=== PATIENT | male | born 1945 | race American Indian/Alaskan Native ===

== ENCOUNTER 2017-10-06 04:49 | Inpatient (IN) | payer MEDICARE, OTHER ==
[2017-10-06] VITALS (10 sets, daily range): BP systolic 95–108; BP diastolic 44–62
[~2017-10-06] VITALS: Ht 170.2 cm; Wt 94.1 kg
[~2017-10-06 04:49] MED LIST: ALLO300T8 PO; ATOR10TA87 PO; BUDE10.2 INH; BUPR200T2 PO; CARB1DRO16 EACHEYE; CYCL-1 PO; DOCU100C40 PO; FINA5TAB11 PO; FLO0.4C PO; FURO-149 PO; IPRA3AMP9 IH; IPRA4AER IH; METH-233 PO; METO25TA6 PO; OMEP-84 PO; POTA25TA13 PO; PROC5TAB PO; SYN0.025T PO; WARF-65 PO; ZAR5T PO
[2017-10-06] MEDS ORDERED: aspirin 81mg tab.chew PO ONE (05:10)
[2017-10-06 05:25] LABS: BASOPHILS # (AUTO) 0.1 X10'3 (0-0.2); BASOPHILS % (AUTO) 0.5 % (0-1); EOSINOPHILS # (AUTO) 0.9 X10'3 (0-0.9); HEMATOCRIT 33.9 % (42.0-52.0); HEMOGLOBIN 11.3 g/dl (14.0-17.9); LYMPHOCYTES # (AUTO) 1.2 X10'3 (1.1-4.8); LYMPHOCYTES % (AUTO) 9.5 % (21-51); MEAN CORPUSCULAR HEMOGLOBIN 29.8 PG (27.0-31.0); MEAN CORPUSCULAR HGB CONC 33.4 % (33.0-36.5); MEAN CORPUSCULAR VOLUME 89.3 FL (78-98); MEAN PLATELET VOLUME 7.4 FL (7.4-10.4); MONOCYTES # (AUTO) 0.7 X10'3 (0-0.9); MONOCYTES % (AUTO) 5.7 % (2-12); NEUTROPHILS # (AUTO) 9.6 X10'3 (1.8-7.7); NEUTROPHILS % (AUTO) 77.3 % (42-75); PLATELET COUNT 174 X10'3 (140-440); RED CELL DISTRIBUTION WIDTH 17.7 % (11.5-14.5); WHITE BLOOD COUNT 12.4 X10'3 (4.5-11.0)
[2017-10-06 05:45] LABS: ALANINE AMINOTRANSFERASE 47 U/L (12-78); ALBUMIN 3.4 G/DL (3.4-5.0); ALBUMIN/GLOBULIN RATIO 0.7 (1.1-1.5); ALKALINE PHOSPHATASE 119 IU/L (46-116); ANION GAP 15 (8-16); ASPARTATE AMINO TRANSFERASE 31 U/L (10-37); BLOOD UREA NITROGEN 30 MG/DL (7-18); BUN/CREATININE RATIO 21.6 (5.4-32.0); CALCIUM 9.6 MG/DL (8.5-10.1); CHLORIDE 100 MMOL/L (99-107); CREATININE 1.39 MG/DL (0.60-1.10); GLUCOSE 109 MG/DL (70-104); POTASSIUM 3.8 MMOL/L (3.5-5.1); SODIUM 139 MMOL/L (135-145); TOTAL PROTEIN 8.2 G/DL (6.4-8.2); eGFR 50 ML/MIN
[2017-10-06 06:11] LABS: INR 1.1 INR; PARTIAL THROMBOPLASTIN TIME 30 SECONDS (22-32); PROTHROMBIN TIME 11.5 SECONDS (9.0-12.0)
[2017-10-06] MEDS ORDERED: FURO40TA4 PO (07:10)
[2017-10-06] MEDS ORDERED: APIX5TAB3 PO (07:13)
[2017-10-06] MEDS ORDERED: MORP10CA11 PO (07:17)
[2017-10-06] MEDS ORDERED: CEFU500T66 PO (07:18)
[2017-10-06] MEDS ORDERED: SENN8.6T61 PO (07:19)
[2017-10-06] MEDS ORDERED: METF500T PO (07:20)
[2017-10-06] MEDS ORDERED: KRIL500C PO (07:21)
[2017-10-06] MEDS ORDERED: METO-384 PO (07:23)
[2017-10-06] MEDS ORDERED: MYCOL30CR TP (07:25)
[2017-10-06] MEDS ORDERED: DICL100G15 TOP (07:26)
[2017-10-06] MEDS ORDERED: aminophylline 250mg/10ml inj. IV PRN (07:30)
[2017-10-06] MEDS ORDERED: magnesium Cl slow-release 64mg tablet PO PRN (07:30)
[2017-10-06] MEDS ORDERED: acetaminophen 325mg tablet PO PRN (07:30)
[2017-10-06] MEDS ORDERED: metoprolol tartrate 1mg/ml inj IV PRN (07:30)
[2017-10-06] MEDS ORDERED: nitroGLYCERIN 0.4mg SUBLingual tab SL PRN ×2 (07:30)
[2017-10-06] MEDS ORDERED: magnesium 4gm in 100ml NS 100 ML IV PRN (07:30)
[2017-10-06] MEDS ORDERED: potassium Cl 40MEQ/NS 500ml 500 ML IV PRN ×2 (07:30)
[2017-10-06] MEDS ORDERED: magnesium 2GM in 50ml NS 50 ML IV PRN (07:30)
[2017-10-06] MEDS ORDERED: regadenoson 0.4mg/5ml syringe IV ONE ×2 (07:30→13:48)
[2017-10-06] MEDS ORDERED: magnesium hydroxide 30ml (MOM) UD suspension PO PRN (07:30)
[2017-10-06] MEDS ORDERED: potassium Cl 20 mEq SR tablet PO PRN ×2 (07:30)
[2017-10-06] MEDS ORDERED: mag hydrox/Alum hydrox/simeth 30ml oral suspension PO PRN (07:30)
[2017-10-06] MEDS: allopurinol 300 MG tablet PO SCH (08:00)
[2017-10-06] MEDS ORDERED: MORPHINE PO SCH (08:00)
[2017-10-06] MEDS: K and/or MAG REPLACEMENT MC SCH (08:00)
[2017-10-06] MEDS: aspirin 325mg tablet PO SCH (08:30)
[2017-10-06] MEDS ORDERED: cyclobenzaprine 10mg tablet PO PRN (08:40)
[2017-10-06] MEDS ORDERED: MORP-64 PO (09:21)
[2017-10-06] MEDS: furosemide 40mg/4ml inj IV SCH ×2 (09:47→20:08)
[2017-10-06] MEDS: levoTHYROXINE 100mcg tablet PO SCH (09:48)
[2017-10-06] MEDS: morphine ER 15mg tablet PO SCH ×2 (09:48→20:08)
[2017-10-06] MEDS: tamsulosin 0.4mg capsule PO SCH (09:48)
[2017-10-06] MEDS: docusate sod 100mg capsule PO SCH ×2 (09:48→20:07)
[2017-10-06] MEDS: finasteride 5mg tablet PO SCH (09:48)
[2017-10-06] MEDS: buPROPion SR 100mg tab PO SCH (09:49)
[2017-10-06] MEDS: apixaban 5mg tablet PO SCH ×2 (09:49→20:09)
[2017-10-06 11:17] LABS: COLOR,URINE YELLOW (Yellow); GLUCOSE, URINE NEGATIVE (Neg); KETONES,URINE NEGATIVE (Neg); LEUKOCYTE ESTERASE ,URINE NEGATIVE (Neg); NITRITES, URINE NEGATIVE (Neg); OCCULT BLOOD,URINE NEGATIVE (Neg); PH,URINE 5.5 (4.8-8.0); PROTEIN,URINE TRACE mg/dl (Neg); UROBILINOGEN,URINE 0.2 E.U/dL (0.2-1.0)
[2017-10-06 11:19] LABS: CLARITY,URINE SLIGHTLY CLOUDY (Clear); UA COLLECTION TYPE STRAIGHT CATH
[2017-10-06 11:30] LABS: BACTERIA,URINE FEW /HPF (Neg); HYALINE CASTS 0-3 /LPF (NEGATIVE); RBC,URINE 0-2 /HPF (0-2); SQUAMOUS EPITHELIAL CELL,UR FEW /LPF (FEW); TRANSITIONAL EPI CELLS,URINE FEW /HPF; WBC CLUMPS,URINE FEW /HPF (NEGATIVE)
[2017-10-06] MEDS ORDERED: aminophylline inj. 0 ML IV ONE (13:48)
[2017-10-06] MEDS: atorvastatin 10mg tablet PO SCH (20:08)
[2017-10-06] MEDS: potassium bicarbonate/cit acid 25mEq tablet.effervescent PO SCH (20:08)
[2017-10-06] MEDS: ipratropium/albuterol 3ml nebule NEB PRN (21:07)
[2017-10-07 03:42] VITALS: BP 111/60
[2017-10-07] MEDS: ipratropium/albuterol 3ml nebule NEB PRN ×2 (04:19→08:34)
[2017-10-07 05:43] LABS: HEMATOCRIT 29.1 % (42.0-52.0); HEMOGLOBIN 9.6 g/dl (14.0-17.9); MEAN CORPUSCULAR HEMOGLOBIN 29.2 PG (27.0-31.0); MEAN CORPUSCULAR HGB CONC 33.2 % (33.0-36.5); MEAN PLATELET VOLUME 7.3 FL (7.4-10.4); PLATELET COUNT 139 X10'3 (140-440); RED CELL DISTRIBUTION WIDTH 17.7 % (11.5-14.5); WHITE BLOOD COUNT 7.6 X10'3 (4.5-11.0)
[2017-10-07 05:53] LABS: INR 1.1 INR; PROTHROMBIN TIME 11.7 SECONDS (9.0-12.0)
[2017-10-07 06:00] VITALS: BP 104/58
[2017-10-07 06:12] LABS: ALBUMIN 3.1 G/DL (3.4-5.0); ANION GAP 10 (8-16); BLOOD UREA NITROGEN 33 MG/DL (7-18); BUN/CREATININE RATIO 26.2 (5.4-32.0); CHLORIDE 103 MMOL/L (99-107); CHOL/HDL RATIO 2.2 (0.00-4.99); CHOLESTEROL 121 MG/DL (0-200); CREATININE 1.26 MG/DL (0.60-1.10); GLUCOSE 96 MG/DL (70-104); HDL CHOLESTEROL 55 MG/DL (35-60); LDL CHOLESTEROL 58 MG/DL (50-100); MAGNESIUM 1.9 MG/DL (1.5-2.4); PHOSPHORUS 3.9 MG/DL (2.3-4.5); POTASSIUM 3.8 MMOL/L (3.5-5.1); SODIUM 142 MMOL/L (135-145); TOTAL CARBON DIOXIDE 29.5 MMOL/L (24-32); TRIGLYCERIDES 66 MG/DL (20-135); eGFR 56 ML/MIN
[2017-10-07] MEDS: fluticasone/vilanterol 200mcg/25mcg inhaler IH SCH (08:00)
[2017-10-07] MEDS: K and/or MAG REPLACEMENT MC SCH (08:00)
[2017-10-07] MEDS ORDERED: metoprolol succinate 25mg (24-HOUR) SR. Tablet PO SCH (08:00)
[2017-10-07] MEDS: allopurinol 300 MG tablet PO SCH (08:06)
[2017-10-07] MEDS: apixaban 5mg tablet PO SCH (08:06)
[2017-10-07] MEDS: levoTHYROXINE 100mcg tablet PO SCH (08:06)
[2017-10-07] MEDS: furosemide 40mg/4ml inj IV SCH (08:07)
[2017-10-07] MEDS: aspirin 325mg tablet PO SCH (08:07)
[2017-10-07] MEDS: docusate sod 100mg capsule PO SCH ×2 (08:07→20:50)
[2017-10-07] MEDS: finasteride 5mg tablet PO SCH (08:07)
[2017-10-07] MEDS: buPROPion SR 100mg tab PO SCH (08:08)
[2017-10-07] MEDS: morphine ER 15mg tablet PO SCH ×2 (08:16→20:49)
[2017-10-07] MEDS: tamsulosin 0.4mg capsule PO SCH (08:16)
[2017-10-07 11:00] VITALS: BP 92/58
[2017-10-07 15:00] VITALS: BP 95/52
[2017-10-07] MEDS ORDERED: metoprolol tartrate 25mg tablet PO ONE (16:45)
[2017-10-07 19:00] VITALS: BP 104/63
[2017-10-07] MEDS ORDERED: sodium bicarbonate (8.4%) inj. 150 MEQ in sodium chloride 0.45% 1,000 ML IV SCH (20:05)
[2017-10-07] MEDS: potassium bicarbonate/cit acid 25mEq tablet.effervescent PO SCH (20:47)
[2017-10-07] MEDS: atorvastatin 10mg tablet PO SCH (20:49)
[2017-10-07] MEDS: acetylcysteine 200 MG/ml 4ml vial PO SCH (21:40)
[2017-10-07] MEDS: temazepam 15mg capsule PO PRN (21:42)
[2017-10-07 23:21] VITALS: BP 105/67
[2017-10-08] VITALS (14 sets, daily range): BP systolic 86–124; BP diastolic 42–74
[2017-10-08 05:29] LABS: INR 1.1 INR; PROTHROMBIN TIME 11.5 SECONDS (9.0-12.0)
[2017-10-08 05:30] LABS: HEMATOCRIT 30.1 % (42.0-52.0); HEMOGLOBIN 9.9 g/dl (14.0-17.9); MEAN CORPUSCULAR VOLUME 87.8 FL (78-98); MEAN PLATELET VOLUME 7.2 FL (7.4-10.4); PLATELET COUNT 143 X10'3 (140-440); RED BLOOD COUNT 3.43 X10'6 (4.70-6.10); RED CELL DISTRIBUTION WIDTH 17.8 % (11.5-14.5); WHITE BLOOD COUNT 8.4 X10'3 (4.5-11.0)
[2017-10-08 06:07] LABS: ALBUMIN 3.1 G/DL (3.4-5.0); ANION GAP 9 (8-16); BLOOD UREA NITROGEN 37 MG/DL (7-18); BUN/CREATININE RATIO 28.2 (5.4-32.0); CALCIUM 9.1 MG/DL (8.5-10.1); CHLORIDE 100 MMOL/L (99-107); CREATININE 1.31 MG/DL (0.60-1.10); GLUCOSE 101 MG/DL (70-104); MAGNESIUM 2.1 MG/DL (1.5-2.4); PHOSPHORUS 3.5 MG/DL (2.3-4.5); POTASSIUM 3.9 MMOL/L (3.5-5.1); SODIUM 141 MMOL/L (135-145); TOTAL CARBON DIOXIDE 31.9 MMOL/L (24-32); eGFR 54 ML/MIN
[2017-10-08] MEDS: tamsulosin 0.4mg capsule PO SCH (07:33)
[2017-10-08] MEDS: docusate sod 100mg capsule PO SCH ×2 (07:34→20:37)
[2017-10-08] MEDS: buPROPion SR 100mg tab PO SCH (07:35)
[2017-10-08] MEDS: morphine ER 15mg tablet PO SCH ×2 (07:35→20:37)
[2017-10-08] MEDS: levoTHYROXINE 100mcg tablet PO SCH (07:35)
[2017-10-08] MEDS: finasteride 5mg tablet PO SCH (07:35)
[2017-10-08] MEDS: metoprolol succinate 25mg (24-HOUR) SR. Tablet PO SCH (07:36)
[2017-10-08] MEDS: furosemide 40mg/4ml inj IV SCH (07:37)
[2017-10-08] MEDS: acetylcysteine 200 MG/ml 4ml vial PO SCH (07:37)
[2017-10-08] MEDS: aspirin 325mg tablet PO SCH (07:39)
[2017-10-08] MEDS: K and/or MAG REPLACEMENT MC SCH (08:00)
[2017-10-08] MEDS ORDERED: acetylcysteine 200 MG/ml 4ml vial PO SCH (08:00)
[2017-10-08] MEDS: fluticasone/vilanterol 200mcg/25mcg inhaler IH SCH (09:57)
[2017-10-08] MEDS: LIDOcaine/PRILOcaine 5gm cream TP SCH ×2 (10:23→12:06)
[2017-10-08] MEDS ORDERED: nitroGLYCERIN-Tridil 50MG/D5W 250 ML IV ONE (12:07)
[2017-10-08] MEDS ORDERED: heparin 1,000unit/ml 10ml vial 10 ML ONE (12:08)
[2017-10-08] MEDS ORDERED: iohexol 350MG/ML 100ml bottle IV ONE (12:08)
[2017-10-08] MEDS ORDERED: verapamil 2.5 mg/ml inj IV ONE (12:08)
[2017-10-08] MEDS ORDERED: iohexol 350 MG/ML 50ML vial IV ONE (12:08)
[2017-10-08] MEDS ORDERED: LIDOcaine 1%/PF (10mg/ml) 5ml vial ONE ×2 (12:08→13:03)
[2017-10-08] MEDS ORDERED: midazolam 2 mg/2 ml injection ONE (12:43)
[2017-10-08] MEDS ORDERED: fentaNYL/PF 50MCG/1 ML 2ML syringe ONE (12:47)
[2017-10-08 13:46] LABS: ISTAT HGB ART 9.5 g/dl (14.0-18.0); ISTAT Hct ART 28 %PCV (42-52); ISTAT O2 SATURATION ARTERIAL 98 % (95-98); ISTAT SOURCE ART
[2017-10-08 13:46] LABS: ISTAT Hct MIX 28 %PCV (42-52); ISTAT O2 SATURATION MIX VENOUS 53 % (60-80); ISTAT SOURCE MIX
[2017-10-08] MEDS: ipratropium/albuterol 3ml nebule NEB PRN (19:50)
[2017-10-08] MEDS: apixaban 5mg tablet PO SCH (20:36)
[2017-10-08] MEDS: atorvastatin 10mg tablet PO SCH (20:37)
[2017-10-08] MEDS: potassium bicarbonate/cit acid 25mEq tablet.effervescent PO SCH (20:37)
[2017-10-08] MEDS: temazepam 15mg capsule PO PRN (20:41)
[2017-10-08] MEDS ORDERED: furosemide 40mg/4ml inj IV ONE (23:10)
[2017-10-09] VITALS (16 sets, daily range): BP systolic 96–112; BP diastolic 47–84
[2017-10-09 06:01] LABS: HEMATOCRIT 31.1 % (42.0-52.0); HEMOGLOBIN 10.4 g/dl (14.0-17.9); MEAN CORPUSCULAR HEMOGLOBIN 29.5 PG (27.0-31.0); MEAN CORPUSCULAR HGB CONC 33.3 % (33.0-36.5); MEAN CORPUSCULAR VOLUME 88.4 FL (78-98); MEAN PLATELET VOLUME 7.3 FL (7.4-10.4); PLATELET COUNT 165 X10'3 (140-440); RED BLOOD COUNT 3.52 X10'6 (4.70-6.10); RED CELL DISTRIBUTION WIDTH 18.1 % (11.5-14.5); WHITE BLOOD COUNT 8.8 X10'3 (4.5-11.0)
[2017-10-09 06:16] LABS: INR 1.1 INR; PROTHROMBIN TIME 11.8 SECONDS (9.0-12.0)
[2017-10-09 06:23] LABS: ALBUMIN 3.2 G/DL (3.4-5.0); ANION GAP 9 (8-16); BLOOD UREA NITROGEN 40 MG/DL (7-18); CALCIUM 9.1 MG/DL (8.5-10.1); CHLORIDE 98 MMOL/L (99-107); CREATININE 1.48 MG/DL (0.60-1.10); GLUCOSE 131 MG/DL (70-104); MAGNESIUM 2.2 MG/DL (1.5-2.4); PHOSPHORUS 3.7 MG/DL (2.3-4.5); POTASSIUM 3.9 MMOL/L (3.5-5.1); SODIUM 141 MMOL/L (135-145); TOTAL CARBON DIOXIDE 34.2 MMOL/L (24-32); eGFR 47 ML/MIN
[2017-10-09] MEDS: K and/or MAG REPLACEMENT MC SCH (08:00)
[2017-10-09] MEDS: buPROPion SR 100mg tab PO SCH (08:27)
[2017-10-09] MEDS: aspirin 325mg tablet PO SCH (08:27)
[2017-10-09] MEDS: docusate sod 100mg capsule PO SCH ×2 (08:28→20:18)
[2017-10-09] MEDS: levoTHYROXINE 100mcg tablet PO SCH (08:28)
[2017-10-09] MEDS: metoprolol succinate 25mg (24-HOUR) SR. Tablet PO SCH (08:28)
[2017-10-09] MEDS: apixaban 5mg tablet PO SCH ×2 (08:28→20:17)
[2017-10-09] MEDS: tamsulosin 0.4mg capsule PO SCH (08:28)
[2017-10-09] MEDS: furosemide 40mg/4ml inj IV SCH (08:28)
[2017-10-09] MEDS: finasteride 5mg tablet PO SCH (08:28)
[2017-10-09] MEDS: morphine ER 15mg tablet PO SCH ×2 (08:28→20:17)
[2017-10-09] MEDS: fluticasone/vilanterol 200mcg/25mcg inhaler IH SCH (08:50)
[2017-10-09] MEDS: DOBUTamine-DoBUTrex 500mg/D5W 250 ML IV SCH (12:33)
[2017-10-09] MEDS: atorvastatin 10mg tablet PO SCH (20:17)
[2017-10-09] MEDS: potassium bicarbonate/cit acid 25mEq tablet.effervescent PO SCH (20:17)
[2017-10-10] VITALS (15 sets, daily range): BP systolic 86–131; BP diastolic 46–81
[2017-10-10] MEDS: ondansetron/PF 4mg/2ml inj IV PRN ×2 (03:46→13:49)
[2017-10-10 05:03] LABS: HEMATOCRIT 28.2 % (42.0-52.0); HEMOGLOBIN 9.4 g/dl (14.0-17.9); MEAN CORPUSCULAR HEMOGLOBIN 29.3 PG (27.0-31.0); MEAN CORPUSCULAR HGB CONC 33.2 % (33.0-36.5); MEAN CORPUSCULAR VOLUME 88.5 FL (78-98); MEAN PLATELET VOLUME 6.9 FL (7.4-10.4); PLATELET COUNT 132 X10'3 (140-440); RED BLOOD COUNT 3.19 X10'6 (4.70-6.10); RED CELL DISTRIBUTION WIDTH 17.6 % (11.5-14.5); WHITE BLOOD COUNT 6.6 X10'3 (4.5-11.0)
[2017-10-10 05:19] LABS: INR 1.1 INR; PROTHROMBIN TIME 11.8 SECONDS (9.0-12.0)
[2017-10-10 05:26] LABS: ALBUMIN 3.1 G/DL (3.4-5.0); ANION GAP 8 (8-16); BLOOD UREA NITROGEN 39 MG/DL (7-18); BUN/CREATININE RATIO 26.7 (5.4-32.0); CALCIUM 8.7 MG/DL (8.5-10.1); CHLORIDE 99 MMOL/L (99-107); CREATININE 1.46 MG/DL (0.60-1.10); GLUCOSE 112 MG/DL (70-104); MAGNESIUM 2.2 MG/DL (1.5-2.4); PHOSPHORUS 4.2 MG/DL (2.3-4.5); SODIUM 141 MMOL/L (135-145); TOTAL CARBON DIOXIDE 34.3 MMOL/L (24-32); eGFR 48 ML/MIN
[2017-10-10] MEDS: DOBUTamine-DoBUTrex 500mg/D5W 250 ML IV SCH ×2 (06:17→08:25)
[2017-10-10] MEDS: K and/or MAG REPLACEMENT MC SCH (08:00)
[2017-10-10] MEDS: tamsulosin 0.4mg capsule PO SCH (08:12)
[2017-10-10] MEDS: allopurinol 300 MG tablet PO SCH (08:12)
[2017-10-10] MEDS: metoprolol succinate 25mg (24-HOUR) SR. Tablet PO SCH (08:13)
[2017-10-10] MEDS: morphine ER 15mg tablet PO SCH ×2 (08:13→20:20)
[2017-10-10] MEDS: levoTHYROXINE 100mcg tablet PO SCH (08:13)
[2017-10-10] MEDS: docusate sod 100mg capsule PO SCH ×2 (08:13→20:20)
[2017-10-10] MEDS: furosemide 40mg/4ml inj IV SCH (08:13)
[2017-10-10] MEDS: apixaban 5mg tablet PO SCH ×2 (08:13→20:20)
[2017-10-10] MEDS: finasteride 5mg tablet PO SCH (08:13)
[2017-10-10] MEDS: aspirin 325mg tablet PO SCH (08:13)
[2017-10-10] MEDS: buPROPion SR 100mg tab PO SCH (08:13)
[2017-10-10] MEDS: fluticasone/vilanterol 200mcg/25mcg inhaler IH SCH (11:02)
[2017-10-10] MEDS: atorvastatin 10mg tablet PO SCH (20:20)
[2017-10-10] MEDS: potassium bicarbonate/cit acid 25mEq tablet.effervescent PO SCH (20:20)
[2017-10-10] MEDS ORDERED: furosemide 40mg/4ml inj IV ONE (21:20)
[2017-10-10] MEDS: Melatonin 3mg tablet PO PRN (21:31)
[2017-10-11] VITALS (22 sets, daily range): BP systolic 85–121; BP diastolic 44–63
[2017-10-11] MEDS: DOBUTamine-DoBUTrex 500mg/D5W 250 ML IV SCH ×2 (02:33→17:39)
[2017-10-11] MEDS: acetaminophen 325mg tablet PO PRN ×2 (04:30→17:33)
[2017-10-11 05:21] LABS: BASOPHILS % (AUTO) 0.2 % (0-1); EOSINOPHILS # (AUTO) 0.2 X10'3 (0-0.9); EOSINOPHILS % (AUTO) 4.6 % (0-6); HEMATOCRIT 26.7 % (42.0-52.0); HEMOGLOBIN 8.9 g/dl (14.0-17.9); LYMPHOCYTES # (AUTO) 0.4 X10'3 (1.1-4.8); LYMPHOCYTES % (AUTO) 8.5 % (21-51); MEAN CORPUSCULAR HEMOGLOBIN 29.6 PG (27.0-31.0); MEAN CORPUSCULAR HGB CONC 33.5 % (33.0-36.5); MEAN CORPUSCULAR VOLUME 88.4 FL (78-98); MEAN PLATELET VOLUME 7.4 FL (7.4-10.4); MONOCYTES # (AUTO) 0.4 X10'3 (0-0.9); MONOCYTES % (AUTO) 6.8 % (2-12); NEUTROPHILS # (AUTO) 4.2 X10'3 (1.8-7.7); NEUTROPHILS % (AUTO) 79.9 % (42-75); PLATELET COUNT 100 X10'3 (140-440); RED BLOOD COUNT 3.02 X10'6 (4.70-6.10); RED CELL DISTRIBUTION WIDTH 17.5 % (11.5-14.5); WHITE BLOOD COUNT 5.2 X10'3 (4.5-11.0)
[2017-10-11 05:29] LABS: INR 1.2 INR; PARTIAL THROMBOPLASTIN TIME 31 SECONDS (22-32); PROTHROMBIN TIME 12.2 SECONDS (9.0-12.0)
[2017-10-11 05:46] LABS: ANION GAP 6 (8-16); BLOOD UREA NITROGEN 39 MG/DL (7-18); BUN/CREATININE RATIO 23.6 (5.4-32.0); CALCIUM 8.5 MG/DL (8.5-10.1); CHLORIDE 97 MMOL/L (99-107); CREATININE 1.65 MG/DL (0.60-1.10); GLUCOSE 100 MG/DL (70-104); MAGNESIUM 2.1 MG/DL (1.5-2.4); PHOSPHORUS 3.9 MG/DL (2.3-4.5); POTASSIUM 3.7 MMOL/L (3.5-5.1); SODIUM 137 MMOL/L (135-145); eGFR 41 ML/MIN
[2017-10-11] MEDS: furosemide 40mg/4ml inj IV SCH (07:24)
[2017-10-11] MEDS: apixaban 5mg tablet PO SCH ×2 (07:25→19:47)
[2017-10-11] MEDS: tamsulosin 0.4mg capsule PO SCH (07:26)
[2017-10-11] MEDS: metoprolol succinate 25mg (24-HOUR) SR. Tablet PO SCH (07:26)
[2017-10-11] MEDS: levoTHYROXINE 100mcg tablet PO SCH (07:26)
[2017-10-11] MEDS: morphine ER 15mg tablet PO SCH ×2 (07:27→19:47)
[2017-10-11] MEDS: buPROPion SR 100mg tab PO SCH (07:27)
[2017-10-11] MEDS: finasteride 5mg tablet PO SCH (07:27)
[2017-10-11] MEDS: docusate sod 100mg capsule PO SCH ×2 (07:27→19:47)
[2017-10-11] MEDS: aspirin 325mg tablet PO SCH (07:33)
[2017-10-11] MEDS: fluticasone/vilanterol 200mcg/25mcg inhaler IH SCH (07:36)
[2017-10-11] MEDS: K and/or MAG REPLACEMENT MC SCH (08:00)
[2017-10-11] MEDS: Melatonin 3mg tablet PO PRN (19:49)
[2017-10-11] MEDS: ondansetron/PF 4mg/2ml inj IV PRN (19:59)
[2017-10-11] MEDS: atorvastatin 10mg tablet PO SCH (20:02)
[2017-10-11] MEDS: potassium bicarbonate/cit acid 25mEq tablet.effervescent PO SCH (20:02)
[2017-10-12] VITALS (15 sets, daily range): BP systolic 90–120; BP diastolic 51–67
[2017-10-12] MEDS: acetaminophen 325mg tablet PO PRN ×2 (00:31→19:09)
[2017-10-12 07:16] LABS: ALBUMIN 2.9 G/DL (3.4-5.0); ANION GAP 5 (8-16); BLOOD UREA NITROGEN 36 MG/DL (7-18); CALCIUM 8.5 MG/DL (8.5-10.1); CHLORIDE 98 MMOL/L (99-107); GLUCOSE 100 MG/DL (70-104); POTASSIUM 3.8 MMOL/L (3.5-5.1); SODIUM 138 MMOL/L (135-145); eGFR 46 ML/MIN
[2017-10-12] MEDS: fluticasone/vilanterol 200mcg/25mcg inhaler IH SCH (08:00)
[2017-10-12] MEDS ORDERED: aspirin 81mg tablet.DR PO SCH (08:00)
[2017-10-12] MEDS: metoprolol succinate 25mg (24-HOUR) SR. Tablet PO SCH (08:00)
[2017-10-12] MEDS: K and/or MAG REPLACEMENT MC SCH (08:00)
[2017-10-12] MEDS: apixaban 5mg tablet PO SCH ×2 (08:09→19:09)
[2017-10-12] MEDS: furosemide 40mg/4ml inj IV SCH (08:09)
[2017-10-12] MEDS: levoTHYROXINE 100mcg tablet PO SCH (08:10)
[2017-10-12] MEDS: tamsulosin 0.4mg capsule PO SCH (08:10)
[2017-10-12] MEDS: buPROPion SR 100mg tab PO SCH (08:10)
[2017-10-12] MEDS: finasteride 5mg tablet PO SCH (08:10)
[2017-10-12] MEDS: allopurinol 300 MG tablet PO SCH (08:10)
[2017-10-12] MEDS: morphine ER 15mg tablet PO SCH ×2 (08:10→19:10)
[2017-10-12] MEDS: docusate sod 100mg capsule PO SCH ×2 (08:10→19:09)
[2017-10-12] MEDS: DOBUTamine-DoBUTrex 500mg/D5W 250 ML IV SCH (12:10)
[2017-10-12] MEDS: atorvastatin 10mg tablet PO SCH (21:00)
[2017-10-12] MEDS: potassium bicarbonate/cit acid 25mEq tablet.effervescent PO SCH (21:00)
[2017-10-12] MEDS ORDERED: ondansetron 4mg rapidly disintigrating tab PO ONE (21:45)
== END 2017-10-12 23:45 | disposition short-term general hospital (02) | DRG 286 ==
LOC: ER 04:49 → ED HOLD 07:28 → PCU 3S 15:12
PROVIDERS: ADMIT Family Medicine; ATTEND Family Medicine
PROC: 4A02XM4 Measurement of Cardiac Total Activity, External Approach (ICD-10-PCS; 2017-10-06)
PROC: 3E033HZ Introduction of Radioactive Substance into Peripheral Vein, Percutaneous Approach (ICD-10-PCS; 2017-10-06)
PROC: 4A023N8 Measurement of Cardiac Sampling and Pressure, Bilateral, Percutaneous Approach (ICD-10-PCS; principal; 2017-10-08)
PROC: B2111ZZ Fluoroscopy of Multiple Coronary Arteries using Low Osmolar Contrast (ICD-10-PCS; 2017-10-08)
PROC: B2151ZZ Fluoroscopy of Left Heart using Low Osmolar Contrast (ICD-10-PCS; 2017-10-08)
PROC: B3101ZZ Fluoroscopy of Thoracic Aorta using Low Osmolar Contrast (ICD-10-PCS; 2017-10-08)
DX: I13.0 Hypertensive heart and chronic kidney disease with heart failure and stage 1 through stage 4 chronic kidney disease, or unspecified chronic kidney disease (principal); I50.33 Acute on chronic diastolic (congestive) heart failure; N17.9 Acute kidney failure, unspecified; E11.22 Type 2 diabetes mellitus with diabetic chronic kidney disease; I48.0 Paroxysmal atrial fibrillation; J44.1 Chronic obstructive pulmonary disease with (acute) exacerbation; D64.9 Anemia, unspecified; E03.9 Hypothyroidism, unspecified; I25.10 Atherosclerotic heart disease of native coronary artery without angina pectoris; E78.00 Pure hypercholesterolemia, unspecified; G89.29 Other chronic pain; M10.9 Gout, unspecified; N18.9 Chronic kidney disease, unspecified; E66.9 Obesity, unspecified; I35.0 Nonrheumatic aortic (valve) stenosis; I34.0 Nonrheumatic mitral (valve) insufficiency; E78.5 Hyperlipidemia, unspecified; N40.0 Benign prostatic hyperplasia without lower urinary tract symptoms; F43.10 Post-traumatic stress disorder, unspecified; K21.9 Gastro-esophageal reflux disease without esophagitis; M19.90 Unspecified osteoarthritis, unspecified site; G47.33 Obstructive sleep apnea (adult) (pediatric); Z95.5 Presence of coronary angioplasty implant and graft; Z79.899 Other long term (current) drug therapy; Z79.01 Long term (current) use of anticoagulants; Z87.440 Personal history of urinary (tract) infections; Z68.32 Body mass index [BMI] 32.0-32.9, adult
CPT/HCPCS: 36415; 71045; 78452; 80048; 80053; 80061; 81001; 82803; 82948; 83735; 83880; 84100; 84443; 84484; 85014; 85025; 85027; 85610; 85730; 87070; 87088; 93005; 93017; 93306; 93460; 93567; 94640; 94760; 99152; 99153; 99285; A4620; A6257; A9500; C1769; J0280; J1250; J1644; J1940; J2001; J2250; J2405; J3010; J3490; Q9967

== ENCOUNTER 2018-07-10 11:03 | Emergency (ER) | payer MEDICARE, OTHER ==
[~2018-07-10] VITALS: Ht 162.6 cm; Wt 90.6 kg
[~2018-07-10 11:03] MED LIST changes: +APIX5TAB3 PO; +CEFU500T66 PO; -CYCL-1 PO; +DICL100G15 TOP; -FURO-149 PO; +FURO40TA4 PO; +KRIL500C PO; +METF500T PO; +METO-384 PO; -METO25TA6 PO; +MORP-64 PO; +MYCOL30CR TP; -PROC5TAB PO; +PROC5TAB10 PO; +SENN8.6T61 PO; -WARF-65 PO
[2018-07-10] MEDS ORDERED: bacitracin 15gm ointment TP ONE (11:25)
[2018-07-10] MEDS ORDERED: diph,pertuss (acell), tet (DTaP-PEDs)/PF 0.5ml syringe IMVAC ONE (11:35)
[2018-07-10] MEDS ORDERED: tetanus & diphtheria toxoid (Td) vaccine 0.5ml IMVAC ONE (11:40)
--- NOTE | 2018-07-10 11:44 | NUR ---
CALLED PHARMACY TO VERIFY TETANUS SHOT
--- NOTE | 2018-07-10 11:47 | NUR ---
SPOKE TO PHARMACIST DUE TO THE FACT THAT HE DCD MY ORDER FOR A TETANUS SHOT. I PREVIOUSLY CALLED PHARMACY TWICE: ONCE TO VERIFY WHICH SHOT TO ORDER: I WAS TOLD THE WRONG ONE
[2018-07-10] MEDS ORDERED: TETanus/Pertussis (Acell)/Diphther VAC/PF (Tdap-Adult) 0.5ml syringe IMVAC ONE (11:50)
[2018-07-10 11:57] VITALS: BP 129/68
== END 2018-07-10 12:01 | disposition home or self-care (01) ==
LOC: ER 11:04
DX: S81.832A Puncture wound without foreign body, left lower leg, initial encounter (principal); S81.812A Laceration without foreign body, left lower leg, initial encounter; I48.91 Unspecified atrial fibrillation; I25.10 Atherosclerotic heart disease of native coronary artery without angina pectoris; E78.00 Pure hypercholesterolemia, unspecified; J44.9 Chronic obstructive pulmonary disease, unspecified; E11.9 Type 2 diabetes mellitus without complications; E03.9 Hypothyroidism, unspecified; G89.29 Other chronic pain; M10.9 Gout, unspecified; I11.0 Hypertensive heart disease with heart failure; I50.9 Heart failure, unspecified; Z87.440 Personal history of urinary (tract) infections; Z98.61 Coronary angioplasty status; Z79.899 Other long term (current) drug therapy; W54.1XXA Struck by dog, initial encounter; Y93.89 Activity, other specified; Y92.89 Other specified places as the place of occurrence of the external cause; Y99.8 Other external cause status
CPT/HCPCS: 90471; 90715; 99283

== ENCOUNTER 2018-11-05 08:24 | Emergency (ER) | payer MEDICARE, OTHER ==
[~2018-11-05] VITALS: Ht 170.2 cm; Wt 95.0 kg
[2018-11-05 09:17] LABS: BASOPHILS % (AUTO) 0.5 % (0-1); EOSINOPHILS # (AUTO) 0.3 X10'3 (0-0.9); EOSINOPHILS % (AUTO) 4.4 % (0-6); HEMATOCRIT 35.8 % (42.0-52.0); HEMOGLOBIN 12.2 g/dl (14.0-17.9); LYMPHOCYTES # (AUTO) 0.6 X10'3 (1.1-4.8); LYMPHOCYTES % (AUTO) 9.5 % (21-51); MEAN CORPUSCULAR HEMOGLOBIN 31.2 PG (27.0-31.0); MEAN PLATELET VOLUME 7.4 FL (7.4-10.4); MONOCYTES # (AUTO) 0.5 X10'3 (0-0.9); MONOCYTES % (AUTO) 7.7 % (2-12); NEUTROPHILS # (AUTO) 5.1 X10'3 (1.8-7.7); NEUTROPHILS % (AUTO) 77.9 % (42-75); PLATELET COUNT 87 X10'3 (140-440); RED BLOOD COUNT 3.89 X10'6 (4.70-6.10); RED CELL DISTRIBUTION WIDTH 15.5 % (11.5-14.5); WHITE BLOOD COUNT 6.5 X10'3 (4.5-11.0)
[2018-11-05 09:29] LABS: ALANINE AMINOTRANSFERASE 31 U/L (12-78); ALBUMIN 3.6 G/DL (3.4-5.0); ALBUMIN/GLOBULIN RATIO 0.8 (1.1-1.5); ALKALINE PHOSPHATASE 88 IU/L (46-116); ANION GAP 9 (8-16); ASPARTATE AMINO TRANSFERASE 26 U/L (10-37); BLOOD UREA NITROGEN 19 MG/DL (7-18); BUN/CREATININE RATIO 16.2 (5.4-32.0); CALCIUM 9.4 MG/DL (8.5-10.1); CHLORIDE 107 MMOL/L (99-107); CREATININE 1.17 MG/DL (0.60-1.10); GLUCOSE 100 MG/DL (70-104); POTASSIUM 4.5 MMOL/L (3.5-5.1); SODIUM 139 MMOL/L (135-145); TOTAL CARBON DIOXIDE 23.2 MMOL/L (24-32); eGFR 61 ML/MIN
[2018-11-05] MEDS ORDERED: ipratropium/albuterol 3ml nebule NEB ONE (09:35)
[2018-11-05] MEDS ORDERED: potassium Cl 20 mEq SR tablet PO STA (09:46)
[2018-11-05] MEDS ORDERED: furosemide 10 MG/1 ML 10ml inj IV ONE (09:50)
[2018-11-05 09:56] VITALS: BP 124/73
== END 2018-11-05 10:41 | disposition home or self-care (01) ==
LOC: ER 08:25
DX: I11.0 Hypertensive heart disease with heart failure (principal); I50.9 Heart failure, unspecified; I48.91 Unspecified atrial fibrillation; I25.10 Atherosclerotic heart disease of native coronary artery without angina pectoris; E78.00 Pure hypercholesterolemia, unspecified; J44.9 Chronic obstructive pulmonary disease, unspecified; E11.9 Type 2 diabetes mellitus without complications; E03.9 Hypothyroidism, unspecified; G89.29 Other chronic pain; Z95.1 Presence of aortocoronary bypass graft
CPT/HCPCS: 36415; 71046; 80053; 83605; 83880; 84484; 85025; 87040; 93005; 94640; 96374; 99284; J1940

== ENCOUNTER 2019-08-01 18:46 | Emergency (ER) | payer MEDICARE, SELFPAY ==
[~2019-08-01] VITALS: Ht 165.1 cm; Wt 90.0 kg
[~2019-08-01 18:46] MED LIST changes: -MORP-64 PO; +MORP-92 PO
[2019-08-01 20:30] LABS: CLARITY,URINE CLEAR (Clear); COLOR,URINE YELLOW (Yellow); GLUCOSE, URINE NEGATIVE (Neg); KETONES,URINE NEGATIVE (Neg); LEUKOCYTE ESTERASE ,URINE NEGATIVE (Neg); NITRITES, URINE NEGATIVE (Neg); OCCULT BLOOD,URINE TRACE-INTACT (Neg); PROTEIN,URINE NEGATIVE (Neg)
[2019-08-01 20:36] LABS: UA COLLECTION TYPE STRAIGHT CATH
[2019-08-01 20:38] LABS: BACTERIA,URINE NONE SEEN /HPF (Neg); RBC,URINE 0-2 /HPF (0-2); SQUAMOUS EPITHELIAL CELL,UR FEW /LPF (FEW); WBC,URINE 0-4 /HPF (0-4)
[2019-08-01 20:39] LABS: HYALINE CASTS 0-3 /LPF (NEGATIVE)
[2019-08-01 21:03] LABS: BASOPHILS % (AUTO) 0.5 % (0-1); EOSINOPHILS # (AUTO) 0.5 X10'3 (0-0.9); EOSINOPHILS % (AUTO) 5.5 % (0-6); HEMATOCRIT 42.3 % (42.0-52.0); HEMOGLOBIN 14.6 g/dl (14.0-17.9); LYMPHOCYTES # (AUTO) 1.7 X10'3 (1.1-4.8); LYMPHOCYTES % (AUTO) 20.4 % (21-51); MEAN CORPUSCULAR HEMOGLOBIN 31.8 PG (27.0-31.0); MEAN CORPUSCULAR HGB CONC 34.5 g/dL (33.0-36.5); MEAN CORPUSCULAR VOLUME 92.1 FL (78-98); MEAN PLATELET VOLUME 7.3 FL (7.4-10.4); MONOCYTES # (AUTO) 0.8 X10'3 (0-0.9); MONOCYTES % (AUTO) 9.3 % (2-12); NEUTROPHILS # (AUTO) 5.3 X10'3 (1.8-7.7); NEUTROPHILS % (AUTO) 64.3 % (42-75); PLATELET COUNT 96 X10'3 (140-440); RED BLOOD COUNT 4.59 X10'6 (4.70-6.10); RED CELL DISTRIBUTION WIDTH 15.2 % (11.5-14.5); WHITE BLOOD COUNT 8.3 X10'3 (4.5-11.0)
[2019-08-01 21:19] LABS: ALANINE AMINOTRANSFERASE 27 U/L (12-78); ALBUMIN 4.1 G/DL (3.4-5.0); ALKALINE PHOSPHATASE 76 IU/L (46-116); ANION GAP 4 (8-16); ASPARTATE AMINO TRANSFERASE 20 U/L (10-37); BILIRUBIN,TOTAL 0.9 MG/DL (0.1-1.0); BLOOD UREA NITROGEN 26 MG/DL (7-18); BUN/CREATININE RATIO 21.8 (5.4-32.0); CALCIUM 9.6 MG/DL (8.5-10.1); CHLORIDE 106 MMOL/L (99-107); CREATININE 1.19 MG/DL (0.60-1.10); GLUCOSE 96 MG/DL (70-104); POTASSIUM 4.1 MMOL/L (3.5-5.1); SODIUM 143 MMOL/L (135-145); TOTAL CARBON DIOXIDE 33.2 MMOL/L (24-32); TOTAL PROTEIN 8.2 G/DL (6.4-8.2); eGFR 60 ML/MIN
[2019-08-01 21:40] LABS: PLATELET ESTIMATE DECREASED
[2019-08-01 22:29] VITALS: BP 99/144
== END 2019-08-01 22:31 | disposition home or self-care (01) ==
LOC: ER 18:47
DX: M79.18 Myalgia, other site (principal); R06.00 Dyspnea, unspecified; R22.0 Localized swelling, mass and lump, head; R61 Generalized hyperhidrosis; I48.91 Unspecified atrial fibrillation; I25.10 Atherosclerotic heart disease of native coronary artery without angina pectoris; I11.0 Hypertensive heart disease with heart failure; I50.9 Heart failure, unspecified; E78.00 Pure hypercholesterolemia, unspecified; E11.9 Type 2 diabetes mellitus without complications; E03.9 Hypothyroidism, unspecified; G89.29 Other chronic pain; Z98.61 Coronary angioplasty status; Z98.890 Other specified postprocedural states; Z87.891 Personal history of nicotine dependence; Z79.84 Long term (current) use of oral hypoglycemic drugs; Z79.899 Other long term (current) drug therapy
CPT/HCPCS: 36415; 80053; 81001; 85025; 99283

== ENCOUNTER 2020-01-26 06:30 | Emergency (ER) | payer MEDICARE ==
[~2020-01-26] VITALS: Ht 165.1 cm; Wt 90.0 kg
[2020-01-26 07:41] LABS: BASOPHILS # (AUTO) 0.2 X10'3 (0-0.2); BASOPHILS % (AUTO) 1.8 % (0-1); EOSINOPHILS # (AUTO) 0.3 X10'3 (0-0.9); EOSINOPHILS % (AUTO) 3.8 % (0-6); HEMOGLOBIN 12.8 g/dl (14.0-17.9); MEAN CORPUSCULAR HEMOGLOBIN 31.8 PG (27.0-31.0); MEAN CORPUSCULAR HGB CONC 33.6 g/dL (33.0-36.5); MEAN CORPUSCULAR VOLUME 94.6 FL (78-98); MONOCYTES # (AUTO) 0.4 X10'3 (0-0.9); MONOCYTES % (AUTO) 5.2 % (2-12); NEUTROPHILS # (AUTO) 6.6 X10'3 (1.8-7.7); NEUTROPHILS % (AUTO) 77.2 % (42-75); PLATELET COUNT 105 X10'3 (140-440); RED BLOOD COUNT 4.01 X10'6 (4.70-6.10); RED CELL DISTRIBUTION WIDTH 15.5 % (11.5-14.5); WHITE BLOOD COUNT 8.5 X10'3 (4.5-11.0)
[2020-01-26] MEDS ORDERED: ondansetron/PF 4mg/2ml inj IV ONE (07:50)
[2020-01-26] MEDS ORDERED: furosemide 10 MG/1 ML 10ml inj IV ONE (07:50)
[2020-01-26 08:05] LABS: ALANINE AMINOTRANSFERASE 20 U/L (12-78); ALBUMIN 3.6 G/DL (3.4-5.0); ALBUMIN/GLOBULIN RATIO 0.7 (1.1-1.5); ALKALINE PHOSPHATASE 72 IU/L (46-116); ANION GAP 9 (8-16); ASPARTATE AMINO TRANSFERASE 26 U/L (10-37); BILIRUBIN,TOTAL 0.8 MG/DL (0.1-1.0); BLOOD UREA NITROGEN 39 MG/DL (7-18); BUN/CREATININE RATIO 21.7 (5.4-32.0); CHLORIDE 100 MMOL/L (99-107); GLUCOSE 103 MG/DL (70-104); POTASSIUM 3.2 MMOL/L (3.5-5.1); SODIUM 138 MMOL/L (135-145); TOTAL CARBON DIOXIDE 28.6 MMOL/L (24-32); TOTAL PROTEIN 8.6 G/DL (6.4-8.2); eGFR 37 ML/MIN
[2020-01-26] MEDS ORDERED: ipratropium/albuterol 3ml nebule NEB ONE (08:15)
--- NOTE | 2020-01-26 08:34 | NUR ---
RT at bedside.
[2020-01-26] MEDS ORDERED: PRED20TA PO (09:08)
[2020-01-26] MEDS ORDERED: predniSONE 20 mg tablet PO ONE (09:10)
[2020-01-26 09:17] VITALS: BP 135/87
== END 2020-01-26 09:17 | disposition home or self-care (01) ==
LOC: ER 06:31
DX: J44.1 Chronic obstructive pulmonary disease with (acute) exacerbation (principal); R11.0 Nausea; I48.91 Unspecified atrial fibrillation; I25.10 Atherosclerotic heart disease of native coronary artery without angina pectoris; I11.0 Hypertensive heart disease with heart failure; I50.9 Heart failure, unspecified; E78.00 Pure hypercholesterolemia, unspecified; E11.9 Type 2 diabetes mellitus without complications; E03.9 Hypothyroidism, unspecified; G89.29 Other chronic pain; M10.9 Gout, unspecified; Z87.440 Personal history of urinary (tract) infections; Z98.890 Other specified postprocedural states; Z79.2 Long term (current) use of antibiotics; Z79.899 Other long term (current) drug therapy
CPT/HCPCS: 36415; 71045; 80053; 82948; 83880; 84145; 84484; 85025; 93005; 94640; 96374; 96375; 99285; J1940; J2405; J7512; 94760

== ENCOUNTER 2021-07-09 13:06 | Emergency (ER) | payer MEDICARE ==
[~2021-07-09] VITALS: Ht 170.2 cm; Wt 127.3 kg
[2021-07-09 13:26] VITALS: BP 126/79
[2021-07-09 13:37] LABS: BASOPHILS # (AUTO) 0.1 X10'3 (0-0.2); BASOPHILS % (AUTO) 0.6 % (0-1); EOSINOPHILS % (AUTO) 0.4 % (0-6); HEMATOCRIT 41.1 % (42.0-52.0); HEMOGLOBIN 13.9 g/dl (14.0-17.9); LYMPHOCYTES # (AUTO) 0.8 X10'3 (1.1-4.8); LYMPHOCYTES % (AUTO) 8.7 % (21-51); MEAN CORPUSCULAR HEMOGLOBIN 32.7 PG (27.0-31.0); MEAN CORPUSCULAR HGB CONC 33.8 g/dL (33.0-36.5); MEAN CORPUSCULAR VOLUME 96.9 FL (78-98); MEAN PLATELET VOLUME 6.9 FL (7.4-10.4); MONOCYTES # (AUTO) 0.6 X10'3 (0-0.9); MONOCYTES % (AUTO) 6.8 % (2-12); NEUTROPHILS # (AUTO) 7.7 X10'3 (1.8-7.7); NEUTROPHILS % (AUTO) 83.5 % (42-75); PLATELET COUNT 114 X10'3 (140-440); RED BLOOD COUNT 4.24 X10'6 (4.70-6.10); RED CELL DISTRIBUTION WIDTH 16.3 % (11.5-14.5); WHITE BLOOD COUNT 9.2 X10'3 (4.5-11.0)
[2021-07-09 13:50] LABS: ALANINE AMINOTRANSFERASE 22 U/L (12-78); ALBUMIN 3.3 G/DL (3.4-5.0); ALBUMIN/GLOBULIN RATIO 0.6 (1.1-1.5); ALKALINE PHOSPHATASE 82 IU/L (46-116); ANION GAP 12 (8-16); ASPARTATE AMINO TRANSFERASE 28 U/L (10-37); BILIRUBIN,TOTAL 1.8 MG/DL (0.1-1.0); BLOOD UREA NITROGEN 46 MG/DL (7-18); BUN/CREATININE RATIO 30.5 (5.4-32.0); CHLORIDE 97 MMOL/L (99-107); CREATININE 1.51 MG/DL (0.60-1.10); GLUCOSE 117 MG/DL (70-104); SODIUM 138 MMOL/L (135-145); TOTAL CARBON DIOXIDE 29.5 MMOL/L (24-32); TOTAL PROTEIN 8.6 G/DL (6.4-8.2); eGFR 45 ML/MIN
[2021-07-09 14:03] LABS: POTASSIUM 2.8 MMOL/L (3.5-5.1)
[2021-07-09] MEDS ORDERED: potassium Cl 20 mEq SR tablet PO ONE (14:15)
[2021-07-09 14:27] LABS: CALCIUM 9.5 MG/DL (8.5-10.1)
[2021-07-09] MEDS: potassium CL 10mEq/100ml bag 100 ML IV SCH ×2 (14:40→16:41)
[2021-07-09] MEDS ORDERED: normal saline 1000ml 1,000 ML IV ONE (15:50)
[2021-07-09] MEDS ORDERED: AMOX-117 PO (15:52)
[2021-07-09] MEDS ORDERED: PRED20TA PO (15:52)
[2021-07-09] MEDS ORDERED: ALBU8HFA PO (15:52)
[2021-07-12] MEDS ORDERED: CEFD300C3 PO (11:33)
[2021-07-12] MEDS ORDERED: LACT1CAP26 PO (11:33)
== END 2021-07-09 17:17 | disposition home or self-care (01) ==
LOC: ER 13:07
DX: J18.9 Pneumonia, unspecified organism (principal); Z20.822 Contact with and (suspected) exposure to COVID-19; R50.9 Fever, unspecified; I48.91 Unspecified atrial fibrillation; I25.10 Atherosclerotic heart disease of native coronary artery without angina pectoris; I11.0 Hypertensive heart disease with heart failure; I50.9 Heart failure, unspecified; J43.9 Emphysema, unspecified; E11.9 Type 2 diabetes mellitus without complications; E03.9 Hypothyroidism, unspecified; G89.29 Other chronic pain; M10.9 Gout, unspecified; Z87.440 Personal history of urinary (tract) infections; Z98.890 Other specified postprocedural states; Z79.899 Other long term (current) drug therapy
CPT/HCPCS: 71045; 80053; 85025; 87502; 87503; 87635; 96360; 96361; 99284; C9803; J3480; J7030

== ENCOUNTER 2021-10-11 04:32 | Inpatient (IN) | payer OTHER, MEDICARE ==
[~2021-10-11] VITALS: Ht 167.6 cm; Wt 104.1 kg
[2021-10-11] VITALS (10 sets, daily range): BP systolic 84–129; BP diastolic 48–72
[~2021-10-11 04:32] MED LIST changes: -APIX5TAB3 PO; -BUPR200T2 PO; -CARB1DRO16 EACHEYE; -CEFU500T66 PO; -DICL100G15 TOP; -FLO0.4C PO; -KRIL500C PO; +LACT1CAP26 PO; -MYCOL30CR TP; -OMEP-84 PO
[2021-10-11] MEDS ORDERED: normal saline 1000ml 1,000 ML IV ONE ×2 (04:50→08:15)
[2021-10-11] MEDS ORDERED: diltiazem 5mg/ml 5ml inj. IV ONE ×2 (04:50→08:45)
[2021-10-11] MEDS ORDERED: cefepime 1GM/NS ADD-VANTAGE 100 ML IV ONE (05:00)
[2021-10-11] MEDS ORDERED: acetaminophen 650mg rectal suppository RC ONE ×2 (05:00→10:10)
[2021-10-11 05:05] LABS: BASOPHILS % (AUTO) 0.3 % (0-1); EOSINOPHILS % (AUTO) 0 % (0-6); HEMOGLOBIN 13.4 g/dl (14.0-17.9); LYMPHOCYTES # (AUTO) 0.4 X10'3 (1.1-4.8)
[2021-10-11 05:06] LABS: CLARITY,URINE CLOUDY (Clear); COLOR,URINE YELLOW (Yellow); GLUCOSE, URINE NEGATIVE (Neg); HEMATOCRIT 40.4 % (42.0-52.0); KETONES,URINE NEGATIVE (Neg); LEUKOCYTE ESTERASE ,URINE SMALL (Neg); LYMPHOCYTES % (AUTO) 3.1 % (21-51); MEAN CORPUSCULAR HEMOGLOBIN 31.9 PG (27.0-31.0); MEAN CORPUSCULAR HGB CONC 33.2 g/dL (33.0-36.5); MEAN PLATELET VOLUME 7.4 FL (7.4-10.4); MONOCYTES # (AUTO) 0.8 X10'3 (0-0.9); MONOCYTES % (AUTO) 5.8 % (2-12); NEUTROPHILS # (AUTO) 12.9 X10'3 (1.8-7.7); NEUTROPHILS % (AUTO) 90.8 % (42-75); NITRITES, URINE NEGATIVE (Neg); OCCULT BLOOD,URINE LARGE (Neg); PH,URINE 6.5 (4.8-8.0); PLATELET COUNT 85 X10'3 (140-440); PROTEIN,URINE 30 mg/dl (Neg); RED BLOOD COUNT 4.21 X10'6 (4.70-6.10); RED CELL DISTRIBUTION WIDTH 15.6 % (11.5-14.5); WHITE BLOOD COUNT 14.2 X10'3 (4.5-11.0)
[2021-10-11 05:15] LABS: APTT 30 SECONDS (22-32)
[2021-10-11 05:17] LABS: ALANINE AMINOTRANSFERASE 30 U/L (12-78); ALBUMIN 3.5 G/DL (3.4-5.0); ALKALINE PHOSPHATASE 87 IU/L (46-116); ANION GAP 9 (8-16); ASPARTATE AMINO TRANSFERASE 33 U/L (10-37); BILIRUBIN,TOTAL 4.3 MG/DL (0.1-1.0); BLOOD UREA NITROGEN 54 MG/DL (7-18); BUN/CREATININE RATIO 24.3 (5.4-32.0); CALCIUM 9.3 MG/DL (8.5-10.1); CHLORIDE 96 MMOL/L (99-107); CREATININE 2.22 MG/DL (0.60-1.10); GLUCOSE 177 MG/DL (70-104); POTASSIUM 3.1 MMOL/L (3.5-5.1); SODIUM 136 MMOL/L (135-145); TOTAL CARBON DIOXIDE 30.6 MMOL/L (24-32); eGFR 29 ML/MIN
[2021-10-11 05:19] LABS: ALBUMIN/GLOBULIN RATIO 0.7 (1.1-1.5); TOTAL PROTEIN 8.6 G/DL (6.4-8.2)
[2021-10-11 05:21] LABS: ETHANOL < 0.010 GM/DL (0.0-0.010)
[2021-10-11 05:22] LABS: UA COLLECTION TYPE CLN CATCH MIDSTREAM
[2021-10-11 05:23] LABS: URINE AMPHETAMINE SCREEN NEGATIVE (Neg); URINE BARBITUATE SCREEN NEGATIVE (Neg); URINE BENZODIAZEPINES SCREEN NEGATIVE (Neg); URINE CANNABINOID SCREEN POSITIVE (Neg); URINE COCAINE SCREEN NEGATIVE (Neg); URINE METHADONE SCREEN NEGATIVE (Neg); URINE OPIATE SCREEN POSITIVE (Neg); URINE PHENCYCLIDINE SCREEN NEGATIVE (Neg)
[2021-10-11 05:24] LABS: BACTERIA,URINE 4+ /HPF (Neg); WBC,URINE 50-100 /HPF (0-4)
[2021-10-11 05:25] LABS: MUCUS STRANDS NONE SEEN /LPF (Neg); SQUAMOUS EPITHELIAL CELL,UR NONE SEEN /LPF (FEW); WBC CLUMPS,URINE MODERATE /HPF (NEGATIVE)
[2021-10-11] MEDS: LORazepam 2 mg/ml vial ONE ×2 (05:40→06:02)
[2021-10-11] MEDS ORDERED: LORazepam 2 mg/ml vial IV ONE ×3 (05:45→17:05)
--- NOTE | 2021-10-11 06:41 | NUR ---
MD AIVTIA MADE AWARE OF PT TACHYCARDIA 120S-140. RECEIVED VERBAL ORDER FOR 500ML NORMAL SALINE BOLUS. ORDER PLACED RECEIVED
[2021-10-11] MEDS ORDERED: normal saline 500ml IV soln 500 ML IV ONE (06:45)
[2021-10-11] MEDS ORDERED: vancomycin/NS 1 GM ADD-VANTAGE 250 ML IV ONE (08:00)
--- NOTE | 2021-10-11 08:45 | NUR ---
pt attempting to get out of bed, not redirectable and continues to be altered. cindy trevizo made aware and verbal order for nonbehavior restraints received. also made aware that pt heart rate went up to 160s and is currently still 135 bpm.
[2021-10-11 09:51] LABS: ABG BASE EXCESS 4.9 mmol/L (-2.0-2.0); ABG HCO3 28.8 mmol/L (22.0-26.0); ABG OXYGEN SATURATION 97.4 % (94-97); ABG PCO2 (T) 39.8 mmHg (35.0-48.0); ABG PO2 (T) 100.5 mmHg (75.0-100.0); ALLEN'S TEST POS; FCOHb 1.1 % (0.0-3.9); FLOW 6 L/min; FO2Hb 96.3 % (94-97)
[2021-10-11] MEDS ORDERED: acetaminophen 1,000mg/100ml IV 100 ML IV ONE (10:49)
--- NOTE | 2021-10-11 10:52 | NUR ---
JOANN UP MADE AWARE OF PT TEMP 104.0 F VIA TEMP RAHUL. IV TYLENOL ORDERED
[2021-10-11] MEDS ORDERED: ondansetron/PF 4mg/2ml inj IV PRN (10:55)
[2021-10-11] MEDS ORDERED: bisacodyl 10mg suppository rectal RC PRN (10:55)
[2021-10-11] MEDS ORDERED: magnesium 2GM in 50ml NS 50 ML IV PRN (10:55)
[2021-10-11] MEDS ORDERED: acetaminophen 650mg rectal suppository RC PRN (10:55)
[2021-10-11] MEDS ORDERED: magnesium hydroxide 30ml (MOM) UD suspension PO PRN (10:55)
[2021-10-11] MEDS ORDERED: amiodarone 150mg/dext, iso-os 100 ML IV ONE ×2 (10:55→11:10)
[2021-10-11] MEDS ORDERED: albuterol 2.5 MG/3 ML nebule NEB PRN (10:55)
[2021-10-11] MEDS ORDERED: magnesium 4gm in 100ml NS 100 ML IV PRN (10:55)
[2021-10-11] MEDS ORDERED: potassium Cl 20 mEq SR tablet PO PRN (10:55)
[2021-10-11] MEDS: amiodarone/D5 360MG/200ML BAG 200 ML IV SCH ×3 (11:27→23:18)
[2021-10-11] MEDS: K and/or MAG REPLACEMENT MC SCH (12:30)
[2021-10-11] MEDS: potassium CL 10mEq/100ml bag 100 ML IV PRN (12:31)
--- NOTE | 2021-10-11 13:10 | NUR ---
informed geophysical prospector barney of pt continued fever of 102.2 (bladder) and confirmed with rectal temperature. per barney, continue with ice packs on patient and then full cooling measures will be implemented/artic sun placed on icu when pt arrives.
[2021-10-11] MEDS ORDERED: albumin (Human) 5% 250ml 250 ML IV ONE (13:40)
--- NOTE | 2021-10-11 13:48 | NUR ---
MF CARLOS AT BEDSIDE. BP 80S/50S ALBUMIN ORDERED AND ADMINISTERED.
[2021-10-11] MEDS ORDERED: dexmedetomidin/NS 400mcg/100ml 100 ML IV SCH ×2 (17:05→17:20)
--- NOTE | 2021-10-11 18:16 | NUR ---
Problems reprioritized. Patient report given, questions answered & plan of care reviewed with ismael ACUNA.
[2021-10-11] MEDS: heparin, porcine 5000 units/ml vial SQ SCH (20:00)
[2021-10-11] MEDS: famotidine/PF 10 mg/ml inj IV SCH (20:31)
[2021-10-11] MEDS: cefepime 1GM/NS ADD-VANTAGE 100 ML IV SCH (20:31)
[2021-10-12] VITALS (23 sets, daily range): BP systolic 93–134; BP diastolic 45–91
[2021-10-12] MEDS: dexmedetomidine/D5W 100mL 100 ML IV SCH ×2 (02:46→13:56)
[2021-10-12] MEDS: amiodarone/D5 360MG/200ML BAG 200 ML IV SCH ×3 (04:41→15:18)
[2021-10-12] MEDS: ringers solution, lacted 1,000 ML IV SCH ×2 (05:36→18:10)
[2021-10-12 05:55] LABS: BASOPHILS % (AUTO) 0.1 % (0-1); EOSINOPHILS % (AUTO) 0.3 % (0-6); HEMATOCRIT 36.4 % (42.0-52.0); HEMOGLOBIN 12.2 g/dl (14.0-17.9); LYMPHOCYTES # (AUTO) 0.7 X10'3 (1.1-4.8); LYMPHOCYTES % (AUTO) 6.8 % (21-51); MEAN CORPUSCULAR HEMOGLOBIN 32.8 PG (27.0-31.0); MEAN CORPUSCULAR HGB CONC 33.5 g/dL (33.0-36.5); MEAN CORPUSCULAR VOLUME 98.2 FL (78-98); MEAN PLATELET VOLUME 7.7 FL (7.4-10.4); MONOCYTES # (AUTO) 1.2 X10'3 (0-0.9); MONOCYTES % (AUTO) 11.8 % (2-12); NEUTROPHILS # (AUTO) 8.3 X10'3 (1.8-7.7); RED BLOOD COUNT 3.71 X10'6 (4.70-6.10); RED CELL DISTRIBUTION WIDTH 16.2 % (11.5-14.5); WHITE BLOOD COUNT 10.2 X10'3 (4.5-11.0)
[2021-10-12 06:00] LABS: ALBUMIN 2.7 G/DL (3.4-5.0); ANION GAP 12 (8-16); BLOOD UREA NITROGEN 56 MG/DL (7-18); BUN/CREATININE RATIO 25.7 (5.4-32.0); CHLORIDE 103 MMOL/L (99-107); CREATININE 2.18 MG/DL (0.60-1.10); GLUCOSE 95 MG/DL (70-104); MAGNESIUM 1.5 MG/DL (1.5-2.4); SODIUM 143 MMOL/L (135-145); TOTAL CARBON DIOXIDE 27.9 MMOL/L (24-32); eGFR 30 ML/MIN
--- NOTE | 2021-10-12 06:00 | NUR ---
Patient in room ICU 2043. I have received report from Karen ACUNA and had the opportunity to ask questions and assume patient care.
[2021-10-12 06:18] LABS: POTASSIUM 2.9 MMOL/L (3.5-5.1)
[2021-10-12 06:47] LABS: PLATELET COUNT 44 X10'3 (140-440)
[2021-10-12] MEDS: pantoprazole 40MG/NS 100ML BAG 100 ML IV SCH (07:19)
[2021-10-12] MEDS: heparin, porcine 5000 units/ml vial SQ SCH (07:48)
[2021-10-12] MEDS: K and/or MAG REPLACEMENT MC SCH (07:48)
[2021-10-12] MEDS: cefepime 1GM/NS ADD-VANTAGE 100 ML IV SCH (08:44)
[2021-10-12] MEDS: famotidine/PF 10 mg/ml inj IV SCH (08:44)
[2021-10-12] MEDS: potassium CL 10mEq/100ml bag 100 ML IV PRN ×8 (08:55→21:29)
[2021-10-12 09:31] LABS: HEMOGLOBIN A1C 5.8 % (4.5-6.2)
[2021-10-12] MEDS ORDERED: METO200T49 PO (10:21)
[2021-10-12] MEDS ORDERED: POTA-82 PO (10:22)
--- NOTE | 2021-10-12 10:30 | NUR ---
Informed Dr. Mauro during rounds of K 2.9-replacing per protocol and plts of 44, pt had swallow eval and passed with pureed thin liquids. addressed med rec.
[2021-10-12] MEDS ORDERED: FOLI0.8T41 PO (10:50)
[2021-10-12] MEDS ORDERED: FLO0.4C PO (10:52)
[2021-10-12] MEDS ORDERED: GABA300C PO (10:52)
[2021-10-12] MEDS ORDERED: ALLO100T25 PO (11:06)
[2021-10-12] MEDS ORDERED: FLUT1DIS4 INH (11:09)
[2021-10-12] MEDS ORDERED: IPRA3AMP31 IH (11:09)
[2021-10-12] MEDS ORDERED: ZAR2.5T PO (11:09)
[2021-10-12] MEDS ORDERED: BUPR200T2 PO (11:12)
--- NOTE | 2021-10-12 11:32 | NUR ---
Malnutrition/Johnathan Consults: Pt admit DX sepsis, UTI, HTN, HOWARD, PNA, and AMS s/p fall per EMR. Pt initially NPO yesterday advanced to pureed/thin diet this AM per QUALITY REVIEWER recs first PO pending WL today. Pt AOx1/confused w/ bilateral arm restraints though might be removed today per RN at rounds; would benefit from assistance w/ meals. Pt reports unsure of wt loss hx w/ decrease appetite per RN Malnutrition Screen this admit though pt AOx1 so unsure of accuracy. Pt has mild weakness, no edema/wounds w/ Johnathan 11, no prior scaled wt hx, and lacks minimum malnutrition criteria at this time. Pt to start thiamine, folic acid, MVI per color receiver at rounds for etoh prophylaxis. LBM 10/11. Will continue to monitor for further nutrition intervention needs this admit. Rec: 1. continue pureed/thin diet per QUALITY REVIEWER/MD recs; assist w/ meals given AMS 2. monitor PO acceptance and ONS needs 3. routine thiamine, folic acid, MVI for etoh prophylaxis per color receiver 4. routine bowel care 5. weekly wts Addendum: 10/12/21 at [address] Amended: Links added.
[2021-10-12] MEDS: thiamine 100mg tablet PO SCH (12:19)
[2021-10-12] MEDS: MULTIVIT-MIN/FERROUS GLUCONATE 9 MG/15 ML LIQUID PO SCH (12:19)
[2021-10-12] MEDS: folic acid 1mg tablet PO SCH (12:20)
[2021-10-12] MEDS: ipratropium/albuterol 3ml nebule IH SCH ×3 (13:05→19:00)
[2021-10-12] MEDS ORDERED: amiodarone 150mg/dext, iso-os 100 ML IV ONE (17:45)
--- NOTE | 2021-10-12 17:46 | NUR ---
Dr. Mauro informed of pts HR 130s-140s in Afib. ordered amio 150mg bolus.
--- NOTE | 2021-10-12 18:31 | NUR ---
Problems reprioritized. Patient report given, questions answered & plan of care reviewed with Karen ACUNA.
--- NOTE | 2021-10-12 18:40 | NUR ---
Called Dr. Mccall, the pt's heart rate was sustaining in the high 130's-140's and briefly in the 150's. Pt currently on amio drip at rate 16.67 with no effect on heart rate. Heart rhythm was interchanging between afib and sinus tach. Dr. Mccall ordered a one time dose of lopressor 5mg IV.
[2021-10-12] MEDS: budesonide 0.5mg/2ml UD nebule IH SCH (19:16)
[2021-10-12] MEDS ORDERED: metoprolol tartrate 1mg/ml inj IV ONE (19:30)
[2021-10-12] MEDS: acetaminophen 325mg tablet PO PRN (19:49)
[2021-10-12] MEDS: atorvastatin 10mg tablet PO SCH (20:16)
[2021-10-13] VITALS (29 sets, daily range): BP systolic 94–139; BP diastolic 52–96
[2021-10-13] MEDS: amiodarone/D5 360MG/200ML BAG 200 ML IV SCH ×4 (03:47→15:46)
[2021-10-13] MEDS: ringers solution, lacted 1,000 ML IV SCH (03:47)
[2021-10-13] MEDS: dexmedetomidine/D5W 100mL 100 ML IV SCH ×3 (03:47→19:27)
--- NOTE | 2021-10-13 04:00 | NUR ---
Rounded on pt with Dr. yañez. K:3.0. The ordered the pt be given 40meq and then rechecked 2 hours after to see were K is at the time. Will let day shift know.
[2021-10-13 06:16] LABS: BASOPHILS % (AUTO) 0.2 % (0-1); EOSINOPHILS % (AUTO) 0.4 % (0-6); HEMATOCRIT 34.6 % (42.0-52.0); LYMPHOCYTES # (AUTO) 0.6 X10'3 (1.1-4.8); NEUTROPHILS # (AUTO) 4.6 X10'3 (1.8-7.7)
[2021-10-13 06:17] LABS: HEMOGLOBIN 11.5 g/dl (14.0-17.9); LYMPHOCYTES % (AUTO) 9.8 % (21-51); MEAN CORPUSCULAR HEMOGLOBIN 32.1 PG (27.0-31.0); MEAN CORPUSCULAR HGB CONC 33.2 g/dL (33.0-36.5); MEAN CORPUSCULAR VOLUME 96.6 FL (78-98); MEAN PLATELET VOLUME 8.1 FL (7.4-10.4); MONOCYTES # (AUTO) 0.8 X10'3 (0-0.9); MONOCYTES % (AUTO) 13.9 % (2-12); NEUTROPHILS % (AUTO) 75.7 % (42-75); RED BLOOD COUNT 3.59 X10'6 (4.70-6.10); RED CELL DISTRIBUTION WIDTH 16.2 % (11.5-14.5); WHITE BLOOD COUNT 6.1 X10'3 (4.5-11.0)
[2021-10-13 06:25] LABS: ALBUMIN 2.7 G/DL (3.4-5.0); ANION GAP 9 (8-16); BLOOD UREA NITROGEN 47 MG/DL (7-18); CALCIUM 8.3 MG/DL (8.5-10.1); CHLORIDE 102 MMOL/L (99-107); CREATININE 2.04 MG/DL (0.60-1.10); GLUCOSE 107 MG/DL (70-104); MAGNESIUM 2.1 MG/DL (1.5-2.4); PLATELET COUNT 41 X10'3 (140-440); POTASSIUM 3.4 MMOL/L (3.5-5.1); SODIUM 141 MMOL/L (135-145); TOTAL CARBON DIOXIDE 30.2 MMOL/L (24-32); eGFR 32 ML/MIN
[2021-10-13] MEDS: K and/or MAG REPLACEMENT MC SCH (07:36)
[2021-10-13] MEDS: budesonide 0.5mg/2ml UD nebule IH SCH ×2 (07:43→19:10)
[2021-10-13] MEDS: ipratropium/albuterol 3ml nebule IH SCH ×4 (07:43→19:10)
[2021-10-13] MEDS: pantoprazole 40MG/NS 100ML BAG 100 ML IV SCH (07:53)
[2021-10-13] MEDS: cefepime 1GM/NS ADD-VANTAGE 100 ML IV SCH (07:53)
[2021-10-13] MEDS: thiamine 100mg tablet PO SCH (07:54)
[2021-10-13] MEDS: levoTHYROXINE 100mcg tablet PO SCH (07:54)
[2021-10-13] MEDS: docusate sod 100mg capsule PO SCH (07:54)
[2021-10-13] MEDS: potassium Cl 20 mEq SR tablet PO PRN ×3 (07:54→16:57)
[2021-10-13] MEDS: folic acid 1mg tablet PO SCH (07:54)
[2021-10-13] MEDS: MULTIVIT-MIN/FERROUS GLUCONATE 9 MG/15 ML LIQUID PO SCH (07:55)
[2021-10-13] MEDS: finasteride 5mg tablet PO SCH (07:55)
[2021-10-13] MEDS ORDERED: allopurinol 100mg tablet PO SCH (08:00)
--- NOTE | 2021-10-13 09:20 | NUR ---
Notified MD Mauro of critical platelet count at this time. Heparin to be held. No additional changes to POC at this time .
[2021-10-13] MEDS: acetaminophen 325mg tablet PO PRN ×2 (09:56→16:57)
[2021-10-13] MEDS: gabapentin 300mg capsule PO SCH ×3 (11:47→20:40)
[2021-10-13] MEDS: tamsulosin 0.4mg capsule PO SCH (11:47)
[2021-10-13] MEDS: buPROPion SR 100mg tab PO SCH (13:13)
[2021-10-13] MEDS ORDERED: ondansetron 4mg rapidly disintigrating tab PO PRN (13:35)
[2021-10-13] MEDS ORDERED: amiodarone 50MG/ML inj IV ONE (14:25)
[2021-10-13] MEDS ORDERED: amiodarone 150mg/dext, iso-os 100 ML IV ONE (14:30)
[2021-10-13] MEDS ORDERED: diltiazem-D5W 125mg/125ml 125 ML IV SCH (15:20)
[2021-10-13] MEDS ORDERED: diltiazem-NS 100mg/100ml 100 ML IV SCH (15:26)
[2021-10-13] MEDS ORDERED: metoprolol tartrate 1mg/ml inj IV ONE (17:30)
--- NOTE | 2021-10-13 17:43 | NUR ---
Discussing POC with MD Mauro at this time, notified of sustained tachycardia despite max dose of cardizem. Notified of temp 38.3. Plan for 5mg lopressor and for Cardizem to be discontinued. Will continue to monitor
[2021-10-13] MEDS: atorvastatin 10mg tablet PO SCH (20:40)
--- NOTE | 2021-10-13 20:52 | NUR ---
Spoke with Dr Smith at this time and informed him about the patients HR in 130's and elevated temperature that is now down from 38.7 to 37.3 . New orders received to give Dig 0.5 IV now and if that doesn't work to give Lopressor 5mg IV q5min x3 watching the BP. Will give Dig first and wait 1 hour per ordered and monitor the patient.
[2021-10-13] MEDS ORDERED: digoxin 250mcg/ml 2ml ampule IV ONE (21:00)
[2021-10-14] VITALS (32 sets, daily range): BP systolic 90–145; BP diastolic 54–84
[2021-10-14] MEDS: acetaminophen 325mg tablet PO PRN (01:32)
[2021-10-14] MEDS: ringers solution, lacted 1,000 ML IV SCH ×3 (03:49→22:49)
[2021-10-14] MEDS: amiodarone/D5 360MG/200ML BAG 200 ML IV SCH ×3 (03:54→11:06)
[2021-10-14] MEDS: dexmedetomidine/D5W 100mL 100 ML IV SCH (04:28)
--- NOTE | 2021-10-14 06:11 | NUR ---
Problems reprioritized. Patient report given, questions answered & plan of care reviewed with Karena ACUNA.
[2021-10-14 06:13] LABS: BASOPHILS % (AUTO) 0.1 % (0-1); EOSINOPHILS % (AUTO) 0.5 % (0-6); HEMATOCRIT 32.1 % (42.0-52.0); HEMOGLOBIN 10.9 g/dl (14.0-17.9); LYMPHOCYTES # (AUTO) 0.5 X10'3 (1.1-4.8); LYMPHOCYTES % (AUTO) 7.7 % (21-51); MEAN CORPUSCULAR HEMOGLOBIN 32.7 PG (27.0-31.0); MEAN CORPUSCULAR HGB CONC 34.1 g/dL (33.0-36.5); MEAN CORPUSCULAR VOLUME 95.9 FL (78-98); MEAN PLATELET VOLUME 8.6 FL (7.4-10.4); MONOCYTES # (AUTO) 0.8 X10'3 (0-0.9); MONOCYTES % (AUTO) 12.1 % (2-12); NEUTROPHILS # (AUTO) 4.9 X10'3 (1.8-7.7); NEUTROPHILS % (AUTO) 79.6 % (42-75); RED BLOOD COUNT 3.34 X10'6 (4.70-6.10); RED CELL DISTRIBUTION WIDTH 15.5 % (11.5-14.5); WHITE BLOOD COUNT 6.2 X10'3 (4.5-11.0)
[2021-10-14 06:18] LABS: ALBUMIN 2.5 G/DL (3.4-5.0); ANION GAP 8 (8-16); BLOOD UREA NITROGEN 36 MG/DL (7-18); BUN/CREATININE RATIO 21.4 (5.4-32.0); CALCIUM 8.4 MG/DL (8.5-10.1); CHLORIDE 101 MMOL/L (99-107); CREATININE 1.68 MG/DL (0.60-1.10); GLUCOSE 100 MG/DL (70-104); POTASSIUM 3.5 MMOL/L (3.5-5.1); SODIUM 137 MMOL/L (135-145); TOTAL CARBON DIOXIDE 27.9 MMOL/L (24-32); eGFR 40 ML/MIN
[2021-10-14 06:22] LABS: PLATELET COUNT 40 X10'3 (140-440)
[2021-10-14] MEDS: ipratropium/albuterol 3ml nebule IH SCH ×4 (07:30→20:10)
[2021-10-14] MEDS: budesonide 0.5mg/2ml UD nebule IH SCH ×2 (07:30→20:10)
[2021-10-14] MEDS: tamsulosin 0.4mg capsule PO SCH (07:33)
[2021-10-14] MEDS: gabapentin 300mg capsule PO SCH ×3 (07:33→20:06)
[2021-10-14] MEDS: thiamine 100mg tablet PO SCH (07:34)
[2021-10-14] MEDS: MULTIVIT-MIN/FERROUS GLUCONATE 9 MG/15 ML LIQUID PO SCH (07:34)
[2021-10-14] MEDS: folic acid 1mg tablet PO SCH (07:34)
[2021-10-14] MEDS: docusate sod 100mg capsule PO SCH (07:34)
[2021-10-14] MEDS: levoTHYROXINE 100mcg tablet PO SCH (07:34)
[2021-10-14] MEDS: buPROPion SR 100mg tab PO SCH (07:34)
[2021-10-14] MEDS: cefepime 1GM/NS ADD-VANTAGE 100 ML IV SCH (07:34)
[2021-10-14] MEDS: pantoprazole 40mg Tablet.DR PO SCH (07:34)
[2021-10-14] MEDS: allopurinol 100mg tablet PO SCH (07:36)
[2021-10-14] MEDS: K and/or MAG REPLACEMENT MC SCH (07:59)
[2021-10-14] MEDS ORDERED: digoxin 250mcg (0.25mg) tablet PO ONE (08:20)
[2021-10-14] MEDS: finasteride 5mg tablet PO SCH (09:08)
[2021-10-14] MEDS: folic acid/vitamin B complex w/vitamin C 0.8mg tablet PO SCH (09:08)
[2021-10-14] MEDS: amiodarone 200mg tablet PO SCH ×2 (11:36→20:06)
[2021-10-14] MEDS: lactose-reduced food (Ensure Enlive) - 237ml bottle PO SCH ×2 (13:00→18:06)
--- NOTE | 2021-10-14 19:00 | NUR ---
CHG wipes bath given. Valerie care and boo care completed. Complete linen change performed. Bed in lowest position, call light within reach.
[2021-10-14] MEDS: atorvastatin 10mg tablet PO SCH (20:06)
[2021-10-14] MEDS: cyclobenzaprine 10mg tablet PO PRN (20:07)
--- NOTE | 2021-10-14 21:08 | NUR ---
RN called and notified Dr. Bennett (phone number [phone]) at 2106 that patient's HR in fluctuating in 120-140's, BP is 134/69, and pt is currently on PO amiodarone. Dr. Bennett gave parameters to notify MD if HR sustains > 140. No further orders given.
[2021-10-15] VITALS (24 sets, daily range): BP systolic 109–144; BP diastolic 53–89
[2021-10-15 05:04] LABS: BASOPHILS % (AUTO) 0.2 % (0-1); EOSINOPHILS # (AUTO) 0.1 X10'3 (0-0.9); EOSINOPHILS % (AUTO) 2.3 % (0-6); HEMATOCRIT 30.9 % (42.0-52.0); HEMOGLOBIN 10.4 g/dl (14.0-17.9); LYMPHOCYTES # (AUTO) 0.6 X10'3 (1.1-4.8); LYMPHOCYTES % (AUTO) 10.6 % (21-51); MEAN CORPUSCULAR HEMOGLOBIN 32.3 PG (27.0-31.0); MEAN CORPUSCULAR HGB CONC 33.8 g/dL (33.0-36.5); MEAN CORPUSCULAR VOLUME 95.7 FL (78-98); MEAN PLATELET VOLUME 8.5 FL (7.4-10.4); MONOCYTES # (AUTO) 0.7 X10'3 (0-0.9); MONOCYTES % (AUTO) 12.2 % (2-12); NEUTROPHILS # (AUTO) 4.4 X10'3 (1.8-7.7); NEUTROPHILS % (AUTO) 74.7 % (42-75); RED BLOOD COUNT 3.23 X10'6 (4.70-6.10); RED CELL DISTRIBUTION WIDTH 15.7 % (11.5-14.5); WHITE BLOOD COUNT 5.9 X10'3 (4.5-11.0)
[2021-10-15 05:08] LABS: PLATELET COUNT 40 X10'3 (140-440)
[2021-10-15 05:13] LABS: ALBUMIN 2.4 G/DL (3.4-5.0); ANION GAP 5 (8-16); BLOOD UREA NITROGEN 28 MG/DL (7-18); BUN/CREATININE RATIO 17.9 (5.4-32.0); CALCIUM 8.6 MG/DL (8.5-10.1); CHLORIDE 102 MMOL/L (99-107); CREATININE 1.56 MG/DL (0.60-1.10); GLUCOSE 95 MG/DL (70-104); MAGNESIUM 1.9 MG/DL (1.5-2.4); POTASSIUM 3.6 MMOL/L (3.5-5.1); SODIUM 138 MMOL/L (135-145); TOTAL CARBON DIOXIDE 30.6 MMOL/L (24-32); eGFR 44 ML/MIN
--- NOTE | 2021-10-15 06:15 | NUR ---
Patient in room ICU 2045. I have received report from Jose Luis ACUNA and had the opportunity to ask questions and assume patient care. Pt currently sitting up in bed side chair, 02//2LPM. accessory muscle use noted with pursed lip breathing and audible wheezes. (very characteristic COPD pattern breathing and sleep positioning.). LR @75. spo2 97%. safety measures in place.
--- NOTE | 2021-10-15 07:05 | NUR ---
Pt strongly encouraged to stay up in bed side chair for breakfast. pt refused, despite encouragement from alternate staff member as well. pt 3 person assist back to bed. HOB maintained > 30 degrees. pt with audible wheezes, accessory muscle use, though spo2 excellent. deep breathing encouraged. pt education completed.
--- NOTE | 2021-10-15 07:30 | NUR ---
Dr. Mauro on unit. discussed pt HR. no new orders at this time. HR fluctuates up to high 130's, down to mid 1teens.
[2021-10-15] MEDS: budesonide 0.5mg/2ml UD nebule IH SCH ×2 (07:43→19:30)
[2021-10-15] MEDS: ipratropium/albuterol 3ml nebule IH SCH ×4 (07:45→19:31)
[2021-10-15] MEDS ORDERED: multivitamins, therapeutics tablet PO SCH (08:00)
[2021-10-15] MEDS: allopurinol 100mg tablet PO SCH (08:51)
[2021-10-15] MEDS: thiamine 100mg tablet PO SCH (08:51)
[2021-10-15] MEDS: folic acid 1mg tablet PO SCH (08:51)
[2021-10-15] MEDS: cefepime 1GM/NS ADD-VANTAGE 100 ML IV SCH (08:51)
[2021-10-15] MEDS: buPROPion SR 100mg tab PO SCH (08:51)
[2021-10-15] MEDS: folic acid/vitamin B complex w/vitamin C 0.8mg tablet PO SCH (08:51)
[2021-10-15] MEDS: levoTHYROXINE 100mcg tablet PO SCH (08:52)
[2021-10-15] MEDS: amiodarone 200mg tablet PO SCH ×2 (08:52→19:49)
[2021-10-15] MEDS: gabapentin 300mg capsule PO SCH ×3 (08:52→20:31)
[2021-10-15] MEDS: docusate sod 100mg capsule PO SCH (08:52)
[2021-10-15] MEDS: tamsulosin 0.4mg capsule PO SCH (08:52)
[2021-10-15] MEDS: lactose-reduced food (Ensure Enlive) - 237ml bottle PO SCH ×3 (08:55→18:21)
[2021-10-15] MEDS: pantoprazole 40mg Tablet.DR PO SCH (08:55)
[2021-10-15 09:05] LABS: HIV ANTIBODY 1&2 RAPID NON-REACTIVE (Neg)
[2021-10-15] MEDS: finasteride 5mg tablet PO SCH (09:19)
[2021-10-15] MEDS ORDERED: potassium Cl 20 mEq SR tablet PO STA (09:47)
[2021-10-15] MEDS ORDERED: furosemide 20 MG/2 ML vial IV ONE (09:50)
[2021-10-15] MEDS ORDERED: digoxin 250mcg/ml 2ml ampule IV ONE (09:50)
[2021-10-15] MEDS: metoprolol succinate 25mg (24-HOUR) SR. Tablet PO SCH (10:42)
--- NOTE | 2021-10-15 10:53 | NUR ---
Rounds with Dr. Mauro and team New order to d/c f/c. straight cath if necessary after bladder scanning. Dr. Mauro instructed nurse to give dig, lasix, Kcl. new order for lidocaine patches. Grijalva Cath d/c'd at 1050 am. tip intact. Pt then worked with physical therapy. tolerated well.
--- NOTE | 2021-10-15 11:55 | NUR ---
F/u 10/15: Pt PO remains poor ~25% avg pureed/thin diet per BUSINESS SYSTEMS MANAGER/MD recs w/ Ensure Enlive TIDWM added per pt request though drank a third of first today per RN and 0% documented last night per EMR. RN reports pt feeling full/bloated quickly and mainly taking in liquids; visualized multiple soda cans at bedside likely not helping GI symptoms. LBM 10/14 two suzy w/ no significant BM noted yet this admit per EMR; receiving routine colace. Plan to have negative fluid balance which may assist w/ feeling full per real estate instructor/RN at rounds. Smoothies TIDWM added for additional kcals/protein since reports tolerating liquids better; dietary notified. Will continue to monitor for further nutrition intervention needs. Rec: 1. continue pureed/thin diet per BUSINESS SYSTEMS MANAGER/MD recs 2. Ensure Enlive TIDWM per pt request; smoothies TIDWM since reports liquid kcals/protein intake preferred at this time 3. routine thiamine, folic acid, MVI for etoh prophylaxis per real estate instructor 4. routine bowel care; no significant BM documented 4 days 5. weekly wts Addendum: 10/15/21 at [address] Amended: Links added.
--- NOTE | 2021-10-15 12:02 | NUR ---
discussed blood sugars with Dr. Mauro. n/o d/c blood sugar check. blood sugars consistently 90-120. AIC 5.8. blood sugar checks ACHS no longer indicated.
[2021-10-15] MEDS: LIDOcaine 5% patch TP SCH (12:16)
--- NOTE | 2021-10-15 18:28 | NUR ---
Problems reprioritized. Patient report given, questions answered & plan of care reviewed with Jose Antonio ACUNA. Pt semi fowlers in bed, working on meal. VS stable. safety measurees in place Addendum: 10/16/21 at 0636 by Shefali Mayer RN Dr. Mauro made quick rounds and gave order for rigoberto parker.
[2021-10-15] MEDS: MESSAGE TO NURSING PO SCH (19:52)
[2021-10-15] MEDS: atorvastatin 10mg tablet PO SCH (20:31)
[2021-10-16] VITALS (24 sets, daily range): BP systolic 108–136; BP diastolic 41–76
--- NOTE | 2021-10-16 00:42 | NUR ---
76 years old male, admitted 10/11/2021, day 5 of hospitalization, Full code, NDA, no restraints, no isolation. This patient presents with past medical history significant for diabetes mellitus, hypertension, BPH , Hypothyroidism, dyslipidemia, hyperuricemia , CHF? atrial fibrillation who was brought into the ER by EMS after patient had a fall. Per the family patient has been altered for the last 1 day and he was found down by the family members yesterday. He was not talking to any one and had no complaints. per , she noticed that he was very restless and moving in the house from one place to other. They wanted to bring him in today but before they could do so, patient sustained a fall and they had to call EMS. Per the chart review patient was recently diagnosed with UTI and was being treated with antibiotics . patient does self catheterizations at home and rarely uses proper hygienic technique. He has frequent UTI. No fever, chills, cough, chest pain, nausea or vomiting Patients intake poor for last three to four days In the ED, patient was noticed to be in A-fib with RVR. He was given 1.5 L fluid bolus and was given IV diltiazem but his HR continue to stay in 160's. Patient also noted to be hypoxic and became hypotensive. admitted to ICU for continued care. Currently, Pt is afebrile, denies pain, AAO times 4, subtle periods of confusion during the night. Moves all extremities, with notable generalized weakness, follows all commands. Two person assist getting out of bed. Echo 10/11/2021 EF 60-65%. HE 100 AF, minimal to no ectopy. BP 138/63. weak pulses, SQ heparin for DVT prophylaxis. RR 16-28, non labored, equal, symmetrical, PO 92-98%, while awake pt is on RA. Apneic at times while sleeping requiring 2L+ NC to maintain SPO2> 90%. Coarse breath sounds, diminished at bases, NO IVF. MARA IV access. Hypoactive bowel sounds, soft non tender, rounded, small BM formed. Puree cardiac diet poorly tolerated. Protonix for GI prophylaxis. Pt voiding via urinal, voiding clear yellow urine. Multiple skin tears, multiple bruises noted globally. Big Bruise on flank area. A1C 5.8. ABX Maxipime. Pt remains safe. Continue to monitor.
[2021-10-16] MEDS ORDERED: mag hydrox/Alum hydrox/simeth 30ml oral suspension PO PRN (06:00)
[2021-10-16 06:03] LABS: ALBUMIN 2.4 G/DL (3.4-5.0); ANION GAP 4 (8-16); BLOOD UREA NITROGEN 28 MG/DL (7-18); BUN/CREATININE RATIO 18.7 (5.4-32.0); CALCIUM 8.9 MG/DL (8.5-10.1); CHLORIDE 103 MMOL/L (99-107); GLUCOSE 104 MG/DL (70-104); POTASSIUM 3.9 MMOL/L (3.5-5.1); SODIUM 140 MMOL/L (135-145); TOTAL CARBON DIOXIDE 33.2 MMOL/L (24-32); eGFR 46 ML/MIN
[2021-10-16 06:06] LABS: BASOPHILS % (AUTO) 0.3 % (0-1); EOSINOPHILS # (AUTO) 0.2 X10'3 (0-0.9); EOSINOPHILS % (AUTO) 4.5 % (0-6); HEMATOCRIT 32.7 % (42.0-52.0); LYMPHOCYTES # (AUTO) 0.6 X10'3 (1.1-4.8); LYMPHOCYTES % (AUTO) 12.6 % (21-51); MEAN CORPUSCULAR HEMOGLOBIN 32.3 PG (27.0-31.0); MEAN CORPUSCULAR HGB CONC 33.5 g/dL (33.0-36.5); MEAN CORPUSCULAR VOLUME 96.5 FL (78-98); MEAN PLATELET VOLUME 8.8 FL (7.4-10.4); MONOCYTES # (AUTO) 0.5 X10'3 (0-0.9); MONOCYTES % (AUTO) 10.3 % (2-12); NEUTROPHILS # (AUTO) 3.6 X10'3 (1.8-7.7); NEUTROPHILS % (AUTO) 72.3 % (42-75); PLATELET COUNT 63 X10'3 (140-440); RED BLOOD COUNT 3.39 X10'6 (4.70-6.10); RED CELL DISTRIBUTION WIDTH 15.5 % (11.5-14.5)
--- NOTE | 2021-10-16 06:30 | NUR ---
Patient in room ICU 2045. I have received report from Jose Antonio ACUNA and had the opportunity to ask questions and assume patient care. Pt alert, semi fowlers in bed, endorsing bloated gassy feeling. safety measures in place. safety education completed. verbalization of understanding noted. pt with strong cough, moderate creamy secretions of which he is orally suctioning with jaye independently. 02//2.5LPM. titrated down to 1.5 due to Sp02 98% (and dx COPD). needs anticipated and met. no s/sx acute distress at this time. VS stable.
[2021-10-16] MEDS: budesonide 0.5mg/2ml UD nebule IH SCH ×2 (08:01→19:22)
[2021-10-16] MEDS: ipratropium/albuterol 3ml nebule IH SCH ×3 (08:01→19:21)
[2021-10-16] MEDS: amiodarone 200mg tablet PO SCH ×2 (08:45→21:05)
[2021-10-16] MEDS: pantoprazole 40mg Tablet.DR PO SCH (08:45)
[2021-10-16] MEDS: metoprolol succinate 25mg (24-HOUR) SR. Tablet PO SCH (08:45)
[2021-10-16] MEDS: docusate sod 100mg capsule PO SCH (08:45)
[2021-10-16] MEDS: finasteride 5mg tablet PO SCH (08:45)
[2021-10-16] MEDS: folic acid/vitamin B complex w/vitamin C 0.8mg tablet PO SCH (08:46)
[2021-10-16] MEDS: tamsulosin 0.4mg capsule PO SCH (08:46)
[2021-10-16] MEDS: cefepime 1GM/NS ADD-VANTAGE 100 ML IV SCH ×2 (08:46→21:07)
[2021-10-16] MEDS: allopurinol 100mg tablet PO SCH (08:46)
[2021-10-16] MEDS: thiamine 100mg tablet PO SCH (08:46)
[2021-10-16] MEDS: gabapentin 300mg capsule PO SCH ×3 (08:46→21:06)
[2021-10-16] MEDS: levoTHYROXINE 100mcg tablet PO SCH (08:46)
[2021-10-16] MEDS: buPROPion SR 100mg tab PO SCH (08:46)
[2021-10-16] MEDS: lactose-reduced food (Ensure Enlive) - 237ml bottle PO SCH ×4 (08:47→19:00)
[2021-10-16] MEDS ORDERED: potassium Cl 20 mEq SR tablet PO STA (10:45)
[2021-10-16] MEDS ORDERED: metoprolol tartrate 50mg tablet PO ONE (11:15)
--- NOTE | 2021-10-16 11:17 | NUR ---
Rounds with Casper Ellington DNP and team CXR results reviewed. new orders for bumex IV, metoprolol increased. Casper instructed this nurse to give first 50mg dose now. KCL added as supplement. cont to encourage p.o. intake.
[2021-10-16] MEDS: bumetanide 0.25mg/ml 4ml vial IV SCH ×4 (11:27→14:48)
[2021-10-16] MEDS: LIDOcaine 5% patch TP SCH (11:29)
--- NOTE | 2021-10-16 18:30 | NUR ---
Problems reprioritized. Patient report given, questions answered & plan of care reviewed with Brendan ACUNA. pt sitting up in chair eating dinner
[2021-10-16] MEDS: MESSAGE TO NURSING PO SCH (20:00)
[2021-10-16] MEDS: metoprolol tartrate 50mg tablet PO SCH (21:06)
[2021-10-16] MEDS: atorvastatin 10mg tablet PO SCH (21:06)
[2021-10-17] VITALS (24 sets, daily range): BP systolic 95–133; BP diastolic 42–72
[2021-10-17] MEDS: lactose-reduced food (Ensure Enlive) - 237ml bottle PO SCH ×2 (02:27→18:00)
--- NOTE | 2021-10-17 06:38 | NUR ---
Patient in room ICU 2045. I have received report from Brendan ACUNA and had the opportunity to ask questions and assume patient care. Pt semi fowlers in bed, chest rising and falling evenly. heels floating. safety measures in place. /1LPM. VS stable. no s/sx acute distress.
[2021-10-17 06:58] LABS: ALBUMIN 2.5 G/DL (3.4-5.0); ANION GAP 6 (8-16); BLOOD UREA NITROGEN 32 MG/DL (7-18); BUN/CREATININE RATIO 21.1 (5.4-32.0); CALCIUM 8.6 MG/DL (8.5-10.1); CHLORIDE 101 MMOL/L (99-107); CREATININE 1.52 MG/DL (0.60-1.10); GLUCOSE 89 MG/DL (70-104); MAGNESIUM 1.9 MG/DL (1.5-2.4); POTASSIUM 3.8 MMOL/L (3.5-5.1); SODIUM 139 MMOL/L (135-145); eGFR 45 ML/MIN
[2021-10-17 07:01] LABS: BASOPHILS % (AUTO) 0.3 % (0-1); EOSINOPHILS # (AUTO) 0.3 X10'3 (0-0.9); HEMOGLOBIN 11.5 g/dl (14.0-17.9); LYMPHOCYTES # (AUTO) 0.9 X10'3 (1.1-4.8); LYMPHOCYTES % (AUTO) 15.4 % (21-51); MEAN CORPUSCULAR HEMOGLOBIN 32.7 PG (27.0-31.0); MEAN CORPUSCULAR HGB CONC 33.8 g/dL (33.0-36.5); MEAN CORPUSCULAR VOLUME 96.6 FL (78-98); MEAN PLATELET VOLUME 8.4 FL (7.4-10.4); MONOCYTES # (AUTO) 0.5 X10'3 (0-0.9); NEUTROPHILS # (AUTO) 4.3 X10'3 (1.8-7.7); NEUTROPHILS % (AUTO) 70.3 % (42-75); PLATELET COUNT 107 X10'3 (140-440); RED BLOOD COUNT 3.52 X10'6 (4.70-6.10); RED CELL DISTRIBUTION WIDTH 15.7 % (11.5-14.5); WHITE BLOOD COUNT 6.1 X10'3 (4.5-11.0)
--- NOTE | 2021-10-17 07:41 | NUR ---
Casper Ellington DNP to see pt. pt breathing better than yesterday, with almost 2.5 L off in 24 hours. reviewed labs. declined follow up CXR at this time. plan is to move to lower level of care floor, most likely telemetry and continue to weight pros and cons of anticoagulation vs. falls.
[2021-10-17] MEDS: docusate sod 100mg capsule PO SCH (08:00)
[2021-10-17] MEDS: ipratropium/albuterol 3ml nebule IH SCH ×4 (08:05→19:45)
[2021-10-17] MEDS: budesonide 0.5mg/2ml UD nebule IH SCH ×2 (08:05→19:45)
[2021-10-17] MEDS ORDERED: simethicone 80mg chew tab PO PRN (08:50)
[2021-10-17] MEDS: finasteride 5mg tablet PO SCH (08:58)
[2021-10-17] MEDS: metoprolol tartrate 50mg tablet PO SCH ×2 (08:58→21:29)
[2021-10-17] MEDS: folic acid/vitamin B complex w/vitamin C 0.8mg tablet PO SCH (08:58)
[2021-10-17] MEDS: gabapentin 300mg capsule PO SCH ×3 (08:58→21:28)
[2021-10-17] MEDS: thiamine 100mg tablet PO SCH (08:58)
[2021-10-17] MEDS: buPROPion SR 100mg tab PO SCH (08:58)
[2021-10-17] MEDS: allopurinol 100mg tablet PO SCH (08:59)
[2021-10-17] MEDS: tamsulosin 0.4mg capsule PO SCH (08:59)
[2021-10-17] MEDS: amiodarone 200mg tablet PO SCH (08:59)
[2021-10-17] MEDS: levoTHYROXINE 100mcg tablet PO SCH (08:59)
[2021-10-17] MEDS: cefepime 1GM/NS ADD-VANTAGE 100 ML IV SCH ×2 (08:59→21:28)
[2021-10-17] MEDS: LIDOcaine 5% patch TP SCH (08:59)
[2021-10-17] MEDS: pantoprazole 40mg Tablet.DR PO SCH (09:02)
--- NOTE | 2021-10-17 13:28 | NUR ---
Pt without void x 6 hours. bladder scanned. + volume. initial scan revealed copious urine in bladder. pt encouraged to stand up and try to void. 125ml in urinal, about 100ml on floor. bladder rescanned. 480ml remaining. Casper HINOJOSA notified; instructed nurse to straight cath pt.
--- NOTE | 2021-10-17 14:05 | NUR ---
Pt straight cathed: 150 out. extensive education to pt regarding self catheterization, infection control, proper technique, hand hygiene, and equipment. pt verbalized understanding. process uneventful with no noted discomfort by pt. Casper HINOJOSA gave order to upgrade pt consistency with meals d/t pt has his dentures/ per pt request
[2021-10-17] MEDS ORDERED: gabapentin 300mg capsule PO SCH (14:16)
--- NOTE | 2021-10-17 18:23 | NUR ---
Problems reprioritized. Patient report given, questions answered & plan of care reviewed with Brendan ACUNA. pt sitting up in bed side chair eating dinner. safety measures in place.
--- NOTE | 2021-10-17 19:00 | NUR ---
Patient in room ICU 2045. I have received report from am and had the opportunity to ask questions and assume patient care.
[2021-10-17] MEDS: MESSAGE TO NURSING PO SCH (20:00)
[2021-10-17] MEDS: atorvastatin 10mg tablet PO SCH (21:28)
--- NOTE | 2021-10-17 23:00 | NUR ---
Pt complained of fullness in the bladder. Bladder scan preformed and showed 1100ml's. Pt was straight cath yielding 1200 ml, Pt tolerated well.
[2021-10-18] VITALS (11 sets, daily range): BP systolic 91–136; BP diastolic 38–71
[2021-10-18] MEDS: cyclobenzaprine 10mg tablet PO PRN ×2 (00:47→21:08)
[2021-10-18] MEDS: acetaminophen 325mg tablet PO PRN ×2 (01:38→20:01)
--- NOTE | 2021-10-18 04:30 | NUR ---
PT has not voided since straight cath. Bladder scan showed over 500ml, Another straight cath performed yielding 550ml of clear urine.
--- NOTE | 2021-10-18 05:00 | NUR ---
Report given to Kit ACUNA in PCU. Pt transferred to PCU floor via Wheelchair.
--- NOTE | 2021-10-18 05:17 | NUR ---
Patient in room PCU 3023B. I have received report from Dwayne ACUNA and had the opportunity to ask questions and assume patient care. Patient arrived to the floor by W/C accompanied by Dwayne ACUNA, in alert and stable condition with belongings. Patient helped to transfer to bed without difficulty. On O2 at 1L per NC and VS taken at this time. Will continue to monitor.
--- NOTE | 2021-10-18 06:40 | NUR ---
Problems reprioritized. Patient report given, questions answered & plan of care reviewed with Giorgi ACUNA.
[2021-10-18 06:47] LABS: ALBUMIN 2.4 G/DL (3.4-5.0); ANION GAP 6 (8-16); BLOOD UREA NITROGEN 28 MG/DL (7-18); BUN/CREATININE RATIO 18.2 (5.4-32.0); CALCIUM 8.5 MG/DL (8.5-10.1); CHLORIDE 102 MMOL/L (99-107); CREATININE 1.54 MG/DL (0.60-1.10); GLUCOSE 78 MG/DL (70-104); MAGNESIUM 1.9 MG/DL (1.5-2.4); POTASSIUM 3.8 MMOL/L (3.5-5.1); SODIUM 139 MMOL/L (135-145); TOTAL CARBON DIOXIDE 31.4 MMOL/L (24-32); eGFR 44 ML/MIN
[2021-10-18 06:57] LABS: BASOPHILS % (AUTO) 0.7 % (0-1); EOSINOPHILS # (AUTO) 0.3 X10'3 (0-0.9); EOSINOPHILS % (AUTO) 5.4 % (0-6); HEMATOCRIT 32.6 % (42.0-52.0); LYMPHOCYTES % (AUTO) 18.1 % (21-51); MEAN CORPUSCULAR HEMOGLOBIN 32.7 PG (27.0-31.0); MEAN CORPUSCULAR HGB CONC 33.7 g/dL (33.0-36.5); MEAN CORPUSCULAR VOLUME 97.2 FL (78-98); MEAN PLATELET VOLUME 7.9 FL (7.4-10.4); MONOCYTES # (AUTO) 0.5 X10'3 (0-0.9); MONOCYTES % (AUTO) 8.8 % (2-12); NEUTROPHILS # (AUTO) 3.7 X10'3 (1.8-7.7); PLATELET COUNT 130 X10'3 (140-440); RED BLOOD COUNT 3.35 X10'6 (4.70-6.10); RED CELL DISTRIBUTION WIDTH 15.9 % (11.5-14.5); WHITE BLOOD COUNT 5.5 X10'3 (4.5-11.0)
[2021-10-18] MEDS: docusate sod 100mg capsule PO SCH (07:33)
[2021-10-18] MEDS: thiamine 100mg tablet PO SCH (07:33)
[2021-10-18] MEDS: levoTHYROXINE 100mcg tablet PO SCH (07:33)
[2021-10-18] MEDS: folic acid/vitamin B complex w/vitamin C 0.8mg tablet PO SCH (07:33)
[2021-10-18] MEDS: gabapentin 300mg capsule PO SCH ×3 (07:34→21:08)
[2021-10-18] MEDS: pantoprazole 40mg Tablet.DR PO SCH (07:38)
[2021-10-18] MEDS: ipratropium/albuterol 3ml nebule IH SCH ×4 (07:38→19:58)
[2021-10-18] MEDS: budesonide 0.5mg/2ml UD nebule IH SCH ×2 (07:38→19:59)
[2021-10-18] MEDS: tamsulosin 0.4mg capsule PO SCH (07:38)
[2021-10-18] MEDS: cefepime 1GM/NS ADD-VANTAGE 100 ML IV SCH ×2 (07:41→20:01)
[2021-10-18] MEDS: LIDOcaine 5% patch TP SCH (07:42)
[2021-10-18] MEDS: metoprolol tartrate 50mg tablet PO SCH ×2 (08:00→20:01)
[2021-10-18] MEDS: lactose-reduced food (Ensure Enlive) - 237ml bottle PO SCH ×4 (08:00→17:00)
[2021-10-18] MEDS: finasteride 5mg tablet PO SCH (09:00)
[2021-10-18] MEDS: buPROPion SR 100mg tab PO SCH (09:00)
--- NOTE | 2021-10-18 09:24 | NUR ---
f/u 10/18: PO intake has improved some but remains low, avg 41% x 9 meals and 50% x 5 ONS, overall meeting approximately 85% of est energy needs and 99% of est protein needs. Sepsis has been resolved per DNP note. Pt's diet has also been upgraded to SB6 per DNP as pt apparently has his dentures now. LBM 10/14 receiving routine colace, recommend additional bowel care if MD agreeable. Will continue to monitor. Rec: 1. continue SB6 diet as tolerated per DNP 2. Ensure Enlive TIDWM per pt request; smoothies TIDWM since reports liquid kcals/protein intake preferred at this time 3. routine thiamine, folic acid, MVI for etoh prophylaxis per showroom sales consultant 4. routine bowel care; no significant BM documented 7 days 5. weekly wts Addendum: 10/18/21 at [address] Amended: Links added.
[2021-10-18] MEDS: allopurinol 100mg tablet PO SCH (09:30)
[2021-10-18] MEDS: metolazone 2.5mg tablet PO SCH (14:18)
[2021-10-18] MEDS: MESSAGE TO NURSING PO SCH (20:00)
[2021-10-18] MEDS: atorvastatin 10mg tablet PO SCH (21:07)
[2021-10-19 02:00] VITALS: BP 134/70
[2021-10-19] MEDS: acetaminophen 325mg tablet PO PRN (05:09)
--- NOTE | 2021-10-19 06:13 | NUR ---
Problems reprioritized. Patient report given, questions answered & plan of care reviewed with ARMAND Rand.
[2021-10-19 06:57] LABS: BASOPHILS % (AUTO) 0.5 % (0-1); EOSINOPHILS # (AUTO) 0.3 X10'3 (0-0.9); EOSINOPHILS % (AUTO) 4.1 % (0-6); HEMATOCRIT 34.4 % (42.0-52.0); HEMOGLOBIN 11.5 g/dl (14.0-17.9); LYMPHOCYTES # (AUTO) 1.1 X10'3 (1.1-4.8); LYMPHOCYTES % (AUTO) 17.6 % (21-51); MEAN CORPUSCULAR HEMOGLOBIN 32.7 PG (27.0-31.0); MEAN CORPUSCULAR HGB CONC 33.4 g/dL (33.0-36.5); MEAN CORPUSCULAR VOLUME 97.8 FL (78-98); MEAN PLATELET VOLUME 7.7 FL (7.4-10.4); MONOCYTES # (AUTO) 0.6 X10'3 (0-0.9); MONOCYTES % (AUTO) 8.6 % (2-12); NEUTROPHILS # (AUTO) 4.5 X10'3 (1.8-7.7); NEUTROPHILS % (AUTO) 69.2 % (42-75); PLATELET COUNT 157 X10'3 (140-440); RED BLOOD COUNT 3.52 X10'6 (4.70-6.10); RED CELL DISTRIBUTION WIDTH 15.7 % (11.5-14.5); WHITE BLOOD COUNT 6.5 X10'3 (4.5-11.0)
[2021-10-19 07:00] VITALS: BP 106/58
[2021-10-19 07:02] LABS: ALBUMIN 2.6 G/DL (3.4-5.0); ANION GAP 7 (8-16); BLOOD UREA NITROGEN 25 MG/DL (7-18); BUN/CREATININE RATIO 16.6 (5.4-32.0); CALCIUM 8.7 MG/DL (8.5-10.1); CHLORIDE 103 MMOL/L (99-107); CREATININE 1.51 MG/DL (0.60-1.10); GLUCOSE 77 MG/DL (70-104); MAGNESIUM 1.9 MG/DL (1.5-2.4); SODIUM 140 MMOL/L (135-145); TOTAL CARBON DIOXIDE 29.9 MMOL/L (24-32); eGFR 45 ML/MIN
[2021-10-19] MEDS: thiamine 100mg tablet PO SCH (07:33)
[2021-10-19] MEDS: pantoprazole 40mg Tablet.DR PO SCH (07:33)
[2021-10-19] MEDS: gabapentin 300mg capsule PO SCH (07:33)
[2021-10-19] MEDS: levoTHYROXINE 100mcg tablet PO SCH (07:33)
[2021-10-19] MEDS: metolazone 2.5mg tablet PO SCH (07:34)
[2021-10-19] MEDS: metoprolol tartrate 50mg tablet PO SCH (07:34)
[2021-10-19] MEDS: buPROPion SR 100mg tab PO SCH (07:35)
[2021-10-19] MEDS: tamsulosin 0.4mg capsule PO SCH (07:35)
[2021-10-19] MEDS: folic acid/vitamin B complex w/vitamin C 0.8mg tablet PO SCH (07:35)
[2021-10-19] MEDS: finasteride 5mg tablet PO SCH (07:36)
[2021-10-19] MEDS: docusate sod 100mg capsule PO SCH (07:36)
[2021-10-19] MEDS: LIDOcaine 5% patch TP SCH (07:36)
[2021-10-19] MEDS: cefepime 1GM/NS ADD-VANTAGE 100 ML IV SCH (07:37)
[2021-10-19] MEDS: ipratropium/albuterol 3ml nebule IH SCH ×2 (08:00→10:55)
[2021-10-19] MEDS: budesonide 0.5mg/2ml UD nebule IH SCH (08:00)
[2021-10-19] MEDS ORDERED: CEFD300C3 PO (10:41)
[2021-10-19] MEDS: allopurinol 100mg tablet PO SCH (10:51)
[2021-10-19 11:00] VITALS: BP 129/65
--- NOTE | 2021-10-19 13:42 | NUR ---
WOUND INFECTION EDUCATION PROVIDED BY WOUND CARE 1. Patient instructed to call their primary doctor, or go the ED immediately if any of the following symptoms occur: * Increased pain in wound * Increase in drainage from the wound * Redness in the skin surrounding the wound * Warmth in the skin surrounding the wound * Bleeding from the wound * Temperature of 101 or greater 2. If any of these occur while in the hospital tell a nurse immediately. PRESSURE ULCER EDUCATION: DEFINITION: A pressure ulcer is an area of skin that breaks down when you stay in one position too long. The constant pressure against the skin reduces the blood flow to that area and the affected tissue dies. CAUSES: "Being bedridden or in a wheelchair "Fragile skin "Having a chronic condition, such as diabetes or vascular disease "Inability to move certain parts of your body without assistance "Older age "Incontinence of urine or stool SYMPTOMS: "A reddened area that DOES NOT turn white when pressed on - this can be the beginning of a pressure ulcer "A blister, deep sore or a crater - these can be advanced pressure ulcers FIRST AID: "Relieve the pressure on this area "Keep the area clean and dry "Call your primary doctor if you see any of the above symptoms "DO NOT massage the area "DO NOT use a donut shaped or ring shaped pillow- these actually interfere with the blood flow and cause complications PREVENTION: "Check for pressure ulcers everyday "Change position at least every two hours to relieve pressure "Use items that help relieve pressure- pillows, sheepskin, foam padding, and powders. "Keep skin clean and dry "Eat healthy well balanced meals "Exercise daily IF YOU SEE ANY OF THESE SYMPTOMS WHILE IN THE HOSPITAL - TELL YOUR NURSE IMMEDIATELY. IF YOU SEE ANY OF THESE SYMPTOMS WHILE AT HOME OR HAVE ANY QUESTIONS OR CONCERNS ABOUT PRESSURE ULCERS - CALL YOUR PRIMARY DOCTOR IMMEDIATELY. Addendum: 10/19/21 at 1343 by Valorie Griffith LVN Amended: Links added.
== END 2021-10-19 12:24 | disposition home health service (06) | DRG 871 ==
LOC: ER 04:33 → ED HOLD 11:06 → ICU 2S 14:11 → CICU 2S 10-13 11:39 → ICU 2S 10-14 18:00 → PCU 3S 10-18 05:35
PROVIDERS: ADMIT Internal Medicine Nephrology; ATTEND Internal Medicine Nephrology
DX: A41.9 Sepsis, unspecified organism (principal); J18.9 Pneumonia, unspecified organism; G93.41 Metabolic encephalopathy; I50.33 Acute on chronic diastolic (congestive) heart failure; I13.0 Hypertensive heart and chronic kidney disease with heart failure and stage 1 through stage 4 chronic kidney disease, or unspecified chronic kidney disease; N17.9 Acute kidney failure, unspecified; E46 Unspecified protein-calorie malnutrition; G72.81 Critical illness myopathy; I48.19 Other persistent atrial fibrillation; N30.01 Acute cystitis with hematuria; R65.20 Severe sepsis without septic shock; E11.22 Type 2 diabetes mellitus with diabetic chronic kidney disease; E78.5 Hyperlipidemia, unspecified; N18.9 Chronic kidney disease, unspecified; Z20.822 Contact with and (suspected) exposure to COVID-19; D69.6 Thrombocytopenia, unspecified; E03.9 Hypothyroidism, unspecified; Z68.37 Body mass index [BMI] 37.0-37.9, adult; E78.00 Pure hypercholesterolemia, unspecified; G89.29 Other chronic pain; I25.10 Atherosclerotic heart disease of native coronary artery without angina pectoris; J43.9 Emphysema, unspecified; N40.0 Benign prostatic hyperplasia without lower urinary tract symptoms; R09.02 Hypoxemia; W18.39XA Other fall on same level, initial encounter; Y93.89 Activity, other specified; Y92.89 Other specified places as the place of occurrence of the external cause; Y99.8 Other external cause status; Z79.899 Other long term (current) drug therapy
CPT/HCPCS: 36410; 36415; 36600; 70450; 71045; 80048; 80053; 80162; 80305; 80320; 81001; 82140; 82803; 82948; 83036; 83605; 83735; 84132; 84145; 84439; 84443; 84484; 85018; 85025; 85610; 85730; 86703; 86803; 87040; 87081; 87502; 87503; 87635; 92508; 92616; 93005; 93308; 94640; 94760; 96365; 96366; 96367; 96375; 96376; 97110; 97116; 97161; 97530; 99285; C9113; C9803; G0378; J0131; J0282; J0692; J1160; J1940; J2060; J3370; J3480; J3490; J7030; J7040; J7120; P9045

== ENCOUNTER 2022-02-04 13:11 | Observation (INO) | payer OTHER, MEDICARE ==
[~2022-02-04] VITALS: Ht 162.6 cm; Wt 90.9 kg
[~2022-02-04 13:11] MED LIST changes: +ALLO100T25 PO; -ALLO300T8 PO; -BUDE10.2 INH; +BUPR200T2 PO; +FLO0.4C PO; +FLUT1DIS4 INH; +FOLI0.8T41 PO; +GABA300C PO; +IPRA3AMP31 IH; -IPRA3AMP9 IH; -IPRA4AER IH; -METO-384 PO; +METO200T49 PO; -MORP-92 PO; +POTA-82 PO; -POTA25TA13 PO; -SENN8.6T61 PO; +ZAR2.5T PO; -ZAR5T PO
[2022-02-04 13:56] LABS: BASOPHILS % (AUTO) 0.6 % (0-1); EOSINOPHILS # (AUTO) 0.4 X10'3 (0-0.9); EOSINOPHILS % (AUTO) 5.8 % (0-6); HEMATOCRIT 39.1 % (42.0-52.0); HEMOGLOBIN 12.9 g/dl (14.0-17.9); LYMPHOCYTES # (AUTO) 1.2 X10'3 (1.1-4.8); LYMPHOCYTES % (AUTO) 15.3 % (21-51); MEAN CORPUSCULAR HEMOGLOBIN 31.5 PG (27.0-31.0); MEAN CORPUSCULAR VOLUME 95.4 FL (78-98); MEAN PLATELET VOLUME 6.9 FL (7.4-10.4); MONOCYTES # (AUTO) 0.6 X10'3 (0-0.9); MONOCYTES % (AUTO) 8.2 % (2-12); NEUTROPHILS # (AUTO) 5.4 X10'3 (1.8-7.7); NEUTROPHILS % (AUTO) 70.1 % (42-75); PLATELET COUNT 110 X10'3 (140-440); RED CELL DISTRIBUTION WIDTH 16.4 % (11.5-14.5); WHITE BLOOD COUNT 7.7 X10'3 (4.5-11.0)
[2022-02-04 14:14] LABS: ANION GAP 10 (8-16); BILIRUBIN,TOTAL 0.7 MG/DL (0.1-1.0); BLOOD UREA NITROGEN 58 MG/DL (7-18); BUN/CREATININE RATIO 29.9 (5.4-32.0); CALCIUM 10.4 MG/DL (8.5-10.1); CHLORIDE 96 MMOL/L (99-107); CREATININE 1.94 MG/DL (0.60-1.10); GLUCOSE 115 MG/DL (70-104); SODIUM 140 MMOL/L (135-145); TOTAL CARBON DIOXIDE 33.8 MMOL/L (24-32); eGFR 34 ML/MIN
[2022-02-04 14:15] LABS: ALANINE AMINOTRANSFERASE 36 U/L (12-78); ALBUMIN 3.8 G/DL (3.4-5.0); ALBUMIN/GLOBULIN RATIO 0.7 (1.1-1.5); ALKALINE PHOSPHATASE 91 IU/L (46-116); ASPARTATE AMINO TRANSFERASE 30 U/L (10-37); TOTAL PROTEIN 9.2 G/DL (6.4-8.2)
[2022-02-04 14:26] LABS: POTASSIUM 3.8 MMOL/L (3.5-5.1)
[2022-02-04] MEDS ORDERED: cyclobenzaprine 10mg tablet PO PRN (20:25)
[2022-02-04] MEDS ORDERED: ipratropium/albuterol 3ml nebule IH PRN (20:25)
[2022-02-04] MEDS ORDERED: magnesium hydroxide 30ml (MOM) UD suspension PO PRN (20:30)
[2022-02-04] MEDS ORDERED: magnesium Cl slow-release 64mg tablet PO PRN (20:30)
[2022-02-04] MEDS ORDERED: metoprolol tartrate 1mg/ml inj IV PRN (20:30)
[2022-02-04] MEDS ORDERED: potassium CL 10mEq/100ml bag 100 ML IV PRN (20:30)
[2022-02-04] MEDS ORDERED: acetaminophen 325mg tablet PO PRN (20:30)
[2022-02-04] MEDS ORDERED: mag hydrox/Alum hydrox/simeth 30ml oral suspension PO PRN (20:30)
[2022-02-04] MEDS ORDERED: magnesium 4gm in 100ml NS 100 ML IV PRN (20:30)
[2022-02-04] MEDS ORDERED: aminophylline 500mg/20ml vial IV PRN (20:30)
[2022-02-04] MEDS ORDERED: ondansetron/PF 4mg/2ml inj IV PRN (20:30)
[2022-02-04] MEDS ORDERED: POTASSIUM BICARB 20meq eff tab 20 MEQ TABLET.EFF PO PRN ×2 (20:30)
[2022-02-04] MEDS ORDERED: nitroGLYCERIN 0.4mg SUBLingual tab SL PRN ×2 (20:30→22:05)
[2022-02-04] MEDS ORDERED: regadenoson 0.4mg/5ml syringe IV PRN (20:30)
[2022-02-04] MEDS ORDERED: morphine 2 MG/ML inj. syringe IV PRN (20:30)
[2022-02-04] MEDS ORDERED: magnesium 2GM in 50ml NS 50 ML IV PRN (20:30)
[2022-02-04] MEDS ORDERED: atorvastatin 10mg tablet PO SCH (21:00)
[2022-02-04] MEDS: morphine 2 MG/ML inj. syringe IV PRN (21:03)
[2022-02-04 22:20] VITALS: BP 121/64
[2022-02-04 23:49] LABS: HEMOGLOBIN A1C 5.7 % (4.5-6.2)
[2022-02-05] VITALS (11 sets, daily range): BP systolic 79–132; BP diastolic 45–81
[2022-02-05] MEDS: gabapentin 300mg capsule PO SCH ×2 (00:25→10:50)
--- NOTE | 2022-02-05 06:15 | NUR ---
Patient in room PCU 3012. I have received report from ARMAND Mcbride and had the opportunity to ask questions and assume patient care.
[2022-02-05 07:33] LABS: BASOPHILS % (AUTO) 0.3 % (0-1); EOSINOPHILS # (AUTO) 0.5 X10'3 (0-0.9); EOSINOPHILS % (AUTO) 6.4 % (0-6); HEMATOCRIT 38.3 % (42.0-52.0); HEMOGLOBIN 12.7 g/dl (14.0-17.9); LYMPHOCYTES # (AUTO) 1.5 X10'3 (1.1-4.8); LYMPHOCYTES % (AUTO) 18.6 % (21-51); MEAN CORPUSCULAR HEMOGLOBIN 31.7 PG (27.0-31.0); MEAN CORPUSCULAR HGB CONC 33.2 g/dL (33.0-36.5); MEAN CORPUSCULAR VOLUME 95.3 FL (78-98); MEAN PLATELET VOLUME 7.2 FL (7.4-10.4); MONOCYTES # (AUTO) 0.7 X10'3 (0-0.9); MONOCYTES % (AUTO) 8.5 % (2-12); NEUTROPHILS # (AUTO) 5.3 X10'3 (1.8-7.7); NEUTROPHILS % (AUTO) 66.2 % (42-75); PLATELET COUNT 111 X10'3 (140-440); RED BLOOD COUNT 4.02 X10'6 (4.70-6.10); RED CELL DISTRIBUTION WIDTH 16.5 % (11.5-14.5)
[2022-02-05] MEDS ORDERED: DEXTROSE 15 GM of carb/4 tabs (each vial/BOTTLE has 4 tablets) PO PRN ×2 (07:40)
[2022-02-05] MEDS ORDERED: dextrose 50%-water 50ml dispensing syringe IV PRN ×2 (07:40)
[2022-02-05] MEDS ORDERED: glucagon, human recombinant 1mg kit SUBCUT PRN (07:40)
[2022-02-05] MEDS ORDERED: insulin Lispro (HumaLOG) vial - multi-dose SQ SCH (07:40)
[2022-02-05 07:54] LABS: ALANINE AMINOTRANSFERASE 29 U/L (12-78); ALBUMIN 3.7 G/DL (3.4-5.0); ALBUMIN/GLOBULIN RATIO 0.7 (1.1-1.5); ALKALINE PHOSPHATASE 87 IU/L (46-116); ANION GAP 11 (8-16); ASPARTATE AMINO TRANSFERASE 28 U/L (10-37); BILIRUBIN,TOTAL 0.7 MG/DL (0.1-1.0); BLOOD UREA NITROGEN 54 MG/DL (7-18); BUN/CREATININE RATIO 29.8 (5.4-32.0); CALCIUM 10.1 MG/DL (8.5-10.1); CHLORIDE 98 MMOL/L (99-107); CHOL/HDL RATIO 2.3 (0.00-4.99); CHOLESTEROL 161 MG/DL (0-200); CREATININE 1.81 MG/DL (0.60-1.10); GLUCOSE 102 MG/DL (70-104); HDL CHOLESTEROL 71 MG/DL (35-60); LDL CHOLESTEROL 71 MG/DL (50-100); MAGNESIUM 2.1 MG/DL (1.5-2.4); POTASSIUM 3.6 MMOL/L (3.5-5.1); SODIUM 143 MMOL/L (135-145); TOTAL CARBON DIOXIDE 34.5 MMOL/L (24-32); TOTAL PROTEIN 8.8 G/DL (6.4-8.2); TRIGLYCERIDES 94 MG/DL (20-135); eGFR 37 ML/MIN
[2022-02-05] MEDS ORDERED: finasteride 5mg tablet PO SCH (08:00)
[2022-02-05] MEDS ORDERED: furosemide 40mg tablet PO SCH (08:00)
[2022-02-05] MEDS ORDERED: metoprolol succinate 25mg (24-HOUR) SR. Tablet PO SCH (08:00)
[2022-02-05] MEDS ORDERED: allopurinol 100mg tablet PO SCH (08:00)
[2022-02-05] MEDS ORDERED: enoxaparin 40mg/0.4ml syringe SUBCUT SCH (08:00)
[2022-02-05] MEDS ORDERED: docusate sod 100mg capsule PO SCH (08:00)
[2022-02-05] MEDS ORDERED: levoTHYROXINE 25mcg tablet PO SCH (08:00)
[2022-02-05] MEDS ORDERED: aspirin 81mg, enteric-coated 1 TAB TABLET.DR PO SCH (08:00)
[2022-02-05] MEDS ORDERED: folic acid/vitamin B complex w/vitamin C 0.8mg tablet PO SCH (08:00)
[2022-02-05] MEDS ORDERED: buPROPion SR 100mg tab PO SCH (08:00)
[2022-02-05] MEDS ORDERED: lactobacillus rhamnosus 10,000 MMU CELLS/CAPSULE PO SCH (08:00)
[2022-02-05] MEDS ORDERED: K and/or MAG REPLACEMENT MC SCH (08:00)
[2022-02-05] MEDS ORDERED: tamsulosin 0.4mg capsule PO SCH (08:00)
[2022-02-05] MEDS ORDERED: albuterol 2.5 MG/3 ML nebule NEB SCH (09:00)
[2022-02-05] MEDS ORDERED: budesonide 0.5mg/2ml UD nebule IH SCH (09:00)
--- NOTE | 2022-02-05 12:07 | NUR ---
DM Consult: Pt hx T2DM A1C 5.7% takes metformin at home per EMR. A1C appropriate; no need for DM ed at this time. Consider removal of carb controlled restriction this admit given A1C. Addendum: 02/05/22 at [address] Amended: Links added.
[2022-02-05] MEDS ORDERED: FURO40TA4 PO (12:31)
[2022-02-05] MEDS ORDERED: PANT40TA54 PO (12:31)
[2022-02-05] MEDS ORDERED: ASPI-1071 PO (12:31)
[2022-02-05] MEDS: morphine 2 MG/ML inj. syringe IV PRN (13:31)
--- NOTE | 2022-02-05 15:15 | NUR ---
DC inst provided to pt. IV DC'd, tip intact. All belongings sent w/pt. WC to vehicle.
[2022-02-05] MEDS ORDERED: insulin glargine (Lantus) pen - multi-dose SQ SCH (21:00)
== END 2022-02-05 15:56 | disposition home or self-care (01) ==
LOC: ER 13:12 → ED HOLD 20:39 → PCU 3S 22:10
PROVIDERS: ADMIT Family Medicine; ATTEND Internal Medicine
DX: R07.89 Other chest pain (principal); I48.20 Chronic atrial fibrillation, unspecified; I13.0 Hypertensive heart and chronic kidney disease with heart failure and stage 1 through stage 4 chronic kidney disease, or unspecified chronic kidney disease; E11.22 Type 2 diabetes mellitus with diabetic chronic kidney disease; I50.9 Heart failure, unspecified; N18.30 Chronic kidney disease, stage 3 unspecified; J43.9 Emphysema, unspecified; E03.9 Hypothyroidism, unspecified; E78.00 Pure hypercholesterolemia, unspecified; I25.119 Atherosclerotic heart disease of native coronary artery with unspecified angina pectoris; M12.9 Arthropathy, unspecified; M41.9 Scoliosis, unspecified; N40.0 Benign prostatic hyperplasia without lower urinary tract symptoms; M10.9 Gout, unspecified; F32.A Depression, unspecified; Z95.1 Presence of aortocoronary bypass graft; Z96.653 Presence of artificial knee joint, bilateral; Z79.899 Other long term (current) drug therapy
CPT/HCPCS: 36415; 71045; 78452; 80053; 80061; 82948; 83036; 83735; 83880; 84145; 84484; 85025; 87081; 93005; 93017; 93306; 94760; 96374; 96375; 96376; 99285; A9500; G0378; J2270; J2405; J2785; 84132; J1815

== ENCOUNTER 2022-07-07 12:19 | Emergency (ER) | payer OTHER, MEDICARE ==
[~2022-07-07] VITALS: Ht 162.6 cm; Wt 90.9 kg
[~2022-07-07 12:19] MED LIST changes: +ARTIFICIAL SALIVA PO; +ASPI-1071 PO; +CIPR250T4 PO; +DILT120C95 PO; +EUCERIN CREAM TOP; +FURO-150 PO; -FURO40TA4 PO; -LACT1CAP26 PO; +LACT1TAB11 PO; +LEVO112T5 PO; -METF500T PO; +MORP-92 PO; +NITR0.4T51 SL; +PRED20TA PO; -SYN0.025T PO; +ZINC57OI3 TOP
[2022-07-07 12:45] VITALS: BP_SYST 70
[2022-07-07 13:56] LABS: COLOR,URINE YELLOW (Yellow); GLUCOSE, URINE NEGATIVE (Neg); KETONES,URINE NEGATIVE (Neg); LEUKOCYTE ESTERASE ,URINE LARGE (Neg); NITRITES, URINE NEGATIVE (Neg); OCCULT BLOOD,URINE SMALL (Neg); PROTEIN,URINE NEGATIVE (Neg); UROBILINOGEN,URINE 0.2 E.U/dL (0.2-1.0)
[2022-07-07 14:05] LABS: BASOPHILS % (AUTO) 0.3 % (0-1); EOSINOPHILS # (AUTO) 0.2 X10'3 (0-0.9); EOSINOPHILS % (AUTO) 2.9 % (0-6); HEMOGLOBIN 12.6 g/dl (14.0-17.9); LYMPHOCYTES # (AUTO) 0.9 X10'3 (1.1-4.8); LYMPHOCYTES % (AUTO) 11.5 % (21-51); MEAN CORPUSCULAR HEMOGLOBIN 31.8 PG (27.0-31.0); MEAN CORPUSCULAR HGB CONC 32.3 g/dL (33.0-36.5); MEAN CORPUSCULAR VOLUME 98.5 FL (78-98); MEAN PLATELET VOLUME 7.9 FL (7.4-10.4); MONOCYTES # (AUTO) 0.6 X10'3 (0-0.9); MONOCYTES % (AUTO) 7.6 % (2-12); NEUTROPHILS # (AUTO) 6.3 X10'3 (1.8-7.7); NEUTROPHILS % (AUTO) 77.7 % (42-75); PLATELET COUNT 78 X10'3 (140-440); RED BLOOD COUNT 3.96 X10'6 (4.70-6.10); RED CELL DISTRIBUTION WIDTH 15.4 % (11.5-14.5); WHITE BLOOD COUNT 8.1 X10'3 (4.5-11.0)
[2022-07-07 14:16] LABS: ALANINE AMINOTRANSFERASE 94 U/L (12-78); ALBUMIN 3.8 G/DL (3.4-5.0); ALBUMIN/GLOBULIN RATIO 0.9 (1.1-1.5); ALKALINE PHOSPHATASE 97 IU/L (46-116); ANION GAP 7 (8-16); ASPARTATE AMINO TRANSFERASE 40 U/L (10-37); BILIRUBIN,TOTAL 0.9 MG/DL (0.1-1.0); BLOOD UREA NITROGEN 62 MG/DL (7-18); BUN/CREATININE RATIO 30.2 (5.4-32.0); CALCIUM 9.4 MG/DL (8.5-10.1); CHLORIDE 96 MMOL/L (99-107); CREATININE 2.05 MG/DL (0.60-1.10); GLUCOSE 143 MG/DL (70-104); LIPASE 52 U/L (73-393); SODIUM 137 MMOL/L (135-145); TOTAL CARBON DIOXIDE 34.2 MMOL/L (24-32); TOTAL PROTEIN 8.1 G/DL (6.4-8.2); eGFR 32 ML/MIN
[2022-07-07 14:19] LABS: POTASSIUM 3.5 MMOL/L (3.5-5.1)
[2022-07-07 14:19] LABS: CLARITY,URINE SLIGHTLY CLOUDY (Clear); UA COLLECTION TYPE CLN CATCH MIDSTREAM
[2022-07-07 14:20] LABS: RBC,URINE NONE SEEN /HPF (0-2); WBC,URINE TNTC /HPF (0-4)
[2022-07-07 14:22] LABS: BACTERIA,URINE 1+ /HPF (Neg); MUCUS STRANDS NONE SEEN /LPF (Neg); SQUAMOUS EPITHELIAL CELL,UR FEW /LPF (FEW); WBC CLUMPS,URINE MODERATE /HPF (NEGATIVE)
== END 2022-07-07 21:53 | disposition left against medical advice (07) ==
LOC: ER 12:19
DX: N39.0 Urinary tract infection, site not specified (principal); Z53.21 Procedure and treatment not carried out due to patient leaving prior to being seen by health care provider
CPT/HCPCS: 36415; 80053; 81001; 83690; 85025; 87077; 87088; 87186

== ENCOUNTER 2022-07-29 09:13 | Emergency (ER) | payer OTHER, MEDICARE ==
[~2022-07-29] VITALS: Ht 170.2 cm; Wt 110.0 kg
[~2022-07-29 09:13] MED LIST changes: -PRED20TA PO
--- NOTE | 2022-07-29 09:40 | NUR ---
PT HAS MULTIPLE ABRAISIONS AND BRUISING TO LEFT CHEST, RIGHT ABDOMEN, AND HEAD. PT REPORTS FALL X 2 DAYS AGO. CALLED AND SPOKE TO ELEONORA (NURSE) AT [facility], SHE CONFIRMED HE FELL 2 DAYS AGO AND DID NOT SEEK MEDICAL ATTENTION. PT REPORTS CURRENTLY FEELING DIZZY. REPORTED THAT PT TAKES ASA BUT NO OTHER THINNERS.
[2022-07-29 10:18] LABS: BASOPHILS % (AUTO) 0.4 % (0-1); EOSINOPHILS # (AUTO) 0.1 X10'3 (0-0.9); EOSINOPHILS % (AUTO) 2.5 % (0-6); HEMATOCRIT 26.8 % (42.0-52.0); HEMOGLOBIN 8.6 g/dl (14.0-17.9); LYMPHOCYTES # (AUTO) 0.7 X10'3 (1.1-4.8); LYMPHOCYTES % (AUTO) 11.7 % (21-51); MEAN CORPUSCULAR HGB CONC 32.2 g/dL (33.0-36.5); MEAN CORPUSCULAR VOLUME 99.4 FL (78-98); MEAN PLATELET VOLUME 6.9 FL (7.4-10.4); MONOCYTES # (AUTO) 0.6 X10'3 (0-0.9); MONOCYTES % (AUTO) 9.8 % (2-12); NEUTROPHILS # (AUTO) 4.3 X10'3 (1.8-7.7); NEUTROPHILS % (AUTO) 75.6 % (42-75); PLATELET COUNT 86 X10'3 (140-440); RED BLOOD COUNT 2.69 X10'6 (4.70-6.10); RED CELL DISTRIBUTION WIDTH 17.6 % (11.5-14.5); WHITE BLOOD COUNT 5.7 X10'3 (4.5-11.0)
[2022-07-29 10:29] LABS: ALANINE AMINOTRANSFERASE 30 U/L (12-78); ALBUMIN 3.1 G/DL (3.4-5.0); ALBUMIN/GLOBULIN RATIO 0.7 (1.1-1.5); ALKALINE PHOSPHATASE 138 IU/L (46-116); ANION GAP 3 (8-16); ASPARTATE AMINO TRANSFERASE 22 U/L (10-37); BLOOD UREA NITROGEN 39 MG/DL (7-18); CHLORIDE 101 MMOL/L (99-107); GLUCOSE 106 MG/DL (70-104); POTASSIUM 3.6 MMOL/L (3.5-5.1); SODIUM 138 MMOL/L (135-145); TOTAL CARBON DIOXIDE 34.4 MMOL/L (24-32); TOTAL PROTEIN 7.3 G/DL (6.4-8.2); eGFR 46 ML/MIN
[2022-07-29 11:09] LABS: ANISOCYTOSIS 1+; PLATELET ESTIMATE DECREASED
[2022-07-29] MEDS ORDERED: furosemide 10 MG/1 ML 10ml inj IV ONE (11:10)
[2022-07-29 11:20] LABS: POLYCHROMASIA 2+
[2022-07-29 15:11] VITALS: BP 99/55
== END 2022-07-29 16:50 | disposition home or self-care (01) ==
LOC: ER 09:15
DX: R63.5 Abnormal weight gain (principal); R06.02 Shortness of breath; I48.91 Unspecified atrial fibrillation; I25.10 Atherosclerotic heart disease of native coronary artery without angina pectoris; I11.0 Hypertensive heart disease with heart failure; I50.9 Heart failure, unspecified; J43.9 Emphysema, unspecified; E11.9 Type 2 diabetes mellitus without complications; E03.9 Hypothyroidism, unspecified; G89.29 Other chronic pain; Z87.440 Personal history of urinary (tract) infections; Z98.890 Other specified postprocedural states; Z79.82 Long term (current) use of aspirin; Z79.2 Long term (current) use of antibiotics; Z79.899 Other long term (current) drug therapy
CPT/HCPCS: 36415; 70450; 71045; 72125; 80053; 83880; 84484; 85008; 85025; 93005; 96374; 99285; J1940

== ENCOUNTER 2022-09-20 14:47 | Emergency (ER) | payer OTHER, MEDICARE ==
[~2022-09-20] VITALS: Ht 162.6 cm; Wt 90.0 kg
[~2022-09-20 14:47] MED LIST changes: +ACET325T57 PO; +ACET325T59 PO; +ASCO500C17 PO; +ATRNS; +BISA10SU60 RC; -CIPR250T4 PO; +ENOX40SY7 SQ; -EUCERIN CREAM TOP; -LACT1TAB11 PO; +MAG-11 PO; +MAGN400O6 PO; +METF-1203 PO; +NA P133E4 RC; +NYSPWD TP; +PRED20TA PO; -PROC5TAB10 PO; +TRAM50TA2 PO; +ZINC PO; -ZINC57OI3 TOP
[2022-09-20 15:28] LABS: BASOPHILS % (AUTO) 0.1 % (0-1); EOSINOPHILS # (AUTO) 0.2 X10'3 (0-0.9); EOSINOPHILS % (AUTO) 2.4 % (0-6); HEMATOCRIT 40.5 % (42.0-52.0); HEMOGLOBIN 13.2 g/dl (14.0-17.9); MEAN CORPUSCULAR HEMOGLOBIN 30.9 PG (27.0-31.0); MEAN CORPUSCULAR HGB CONC 32.7 g/dL (33.0-36.5); MEAN CORPUSCULAR VOLUME 94.4 FL (78-98); MEAN PLATELET VOLUME 7.1 FL (7.4-10.4); MONOCYTES # (AUTO) 0.7 X10'3 (0-0.9); MONOCYTES % (AUTO) 7.9 % (2-12); NEUTROPHILS # (AUTO) 6.6 X10'3 (1.8-7.7); NEUTROPHILS % (AUTO) 77.6 % (42-75); PLATELET COUNT 88 X10'3 (140-440); RED BLOOD COUNT 4.29 X10'6 (4.70-6.10); RED CELL DISTRIBUTION WIDTH 16.4 % (11.5-14.5); WHITE BLOOD COUNT 8.5 X10'3 (4.5-11.0)
[2022-09-20 15:33] LABS: ALANINE AMINOTRANSFERASE 47 U/L (12-78); ALBUMIN 3.8 G/DL (3.4-5.0); ALBUMIN/GLOBULIN RATIO 0.8 (1.1-1.5); ALKALINE PHOSPHATASE 93 IU/L (46-116); ANION GAP 7 (8-16); ASPARTATE AMINO TRANSFERASE 23 U/L (10-37); BILIRUBIN,TOTAL 1.7 MG/DL (0.1-1.0); BLOOD UREA NITROGEN 49 MG/DL (7-18); CALCIUM 9.9 MG/DL (8.5-10.1); CHLORIDE 92 MMOL/L (99-107); CREATININE 2.04 MG/DL (0.60-1.10); GLUCOSE 162 MG/DL (70-104); MAGNESIUM 1.4 MG/DL (1.5-2.4); POTASSIUM 3.5 MMOL/L (3.5-5.1); SODIUM 138 MMOL/L (135-145); TOTAL PROTEIN 8.4 G/DL (6.4-8.2); eGFR 32 ML/MIN
[2022-09-20] MEDS ORDERED: potassium Cl 20 mEq SR tablet PO STA (16:12)
[2022-09-20] MEDS ORDERED: normal saline 1000ML IV soln IVB ONE (16:13)
[2022-09-20] MEDS ORDERED: magnesium 2GM in 50ml NS 50 ML IV ONE (16:14)
[2022-09-20 18:36] LABS: CLARITY,URINE CLEAR (Clear); COLOR,URINE YELLOW (Yellow); GLUCOSE, URINE NEGATIVE (Neg); KETONES,URINE NEGATIVE (Neg); LEUKOCYTE ESTERASE ,URINE NEGATIVE (Neg); NITRITES, URINE NEGATIVE (Neg); OCCULT BLOOD,URINE NEGATIVE (Neg); PH,URINE 6.5 (4.8-8.0); PROTEIN,URINE NEGATIVE (Neg); UROBILINOGEN,URINE 0.2 E.U/dL (0.2-1.0)
[2022-09-20 18:55] LABS: UA COLLECTION TYPE CLN CATCH MIDSTREAM
[2022-09-20 19:28] VITALS: BP 127/74
== END 2022-09-20 19:45 | disposition home or self-care (01) ==
LOC: ER 14:48
DX: E83.42 Hypomagnesemia (principal); I13.0 Hypertensive heart and chronic kidney disease with heart failure and stage 1 through stage 4 chronic kidney disease, or unspecified chronic kidney disease; I50.9 Heart failure, unspecified; E11.22 Type 2 diabetes mellitus with diabetic chronic kidney disease; N18.9 Chronic kidney disease, unspecified; J44.9 Chronic obstructive pulmonary disease, unspecified; E03.9 Hypothyroidism, unspecified
CPT/HCPCS: 36415; 80053; 81003; 83735; 85025; 96365; 99284; J3475; J7030